=== PATIENT | female | born 1990 | race Caucasian/White ===

== ENCOUNTER 2016-06-27 12:25 | Emergency (ER) | payer MEDICAID ==
[2016-06-27 13:43] VITALS: BP 91/57
[2016-06-27 14:06] LABS: Basophils % (Auto) 0.2 % (0.0-1.8); Eosinophils % (Auto) 0.6 % (0.0-4.3); Hematocrit 37.6 % (30.3-42.9); Hemoglobin 12.5 gm/dl (10.1-14.3); Mean Corpuscular HGB Conc 33 % (30-34); Mean Corpuscular Hemoglobin 31 pg (28-32); Mean Corpuscular Volume 93 fl (79-97); Platelet Count 247 K/mm3 (140-440); Red Blood Count 4.06 M/mm3 (3.65-5.03); Red Cell Distribution Width 14.1 % (13.2-15.2); White Blood Count 14.7 K/mm3 (4.5-11.0)
[2016-06-27 14:36] LABS: Bilirubin,Urine NEG (Negative); Blood,Urine MOD (Negative); Ketones,Urine TR mg/dL (Negative); Leukocyte Esterase,Urine NEG (Negative); Mucus,Urine FEW /HPF; Nitrite,Urine NEG (Negative); Protein,Urine <15 mg/dL mg/dL (Negative); Urobilinogen,Urine < 2.0 mg/dL (<2.0)
--- NOTE | 2016-06-27 16:02 | Ultrasound Report ---
FINAL REPORT EXAM: US OB \T\gt; = 14 WEEKS FETUS HISTORY: ABD PAIN / / BLEEDING TECHNIQUE: Grayscale and color doppler ultrasound of the fetus was performed. PRIORS: Ob ultrasound 04/22/2016. FINDINGS: A single, live intrauterine fetus is present in transverse presentation with a heart rate of 156 beats per minute. The placenta is grade 0 and anterior in location. No definite evidence of placenta previa however the inferior aspect of the uterus was somewhat difficult to evaluate due to a contraction. The maternal cervix is closed measuring 4.0 centimeters in length. The amniotic fluid volume is subjectively normal. Biparietal diameter: 16 weeks and 6 days. Head circumference: 16 weeks and 4 days. Abdominal circumference: 16 weeks and 1 day. Femur length: 16 weeks and 3 days. Estimated gestational age based on ultrasound criteria is 16 weeks and 4 days with an YULY of 12/08/2016. EFW at the 16th percentile. Estimated weight is 153 grams. IMPRESSION: Live intrauterine fetus measuring at 16 weeks and 4 days gestational age with an YULY of 12/08/2016.
== END 2016-06-27 19:20 | disposition left against medical advice (07) ==
LOC: ED 12:25
DX: O26.892 Other specified pregnancy related conditions, second trimester (principal); R10.30 Lower abdominal pain, unspecified; F41.9 Anxiety disorder, unspecified; G89.29 Other chronic pain; Z87.891 Personal history of nicotine dependence; Z3A.16 16 weeks gestation of pregnancy; Z53.21 Procedure and treatment not carried out due to patient leaving prior to being seen by health care provider
CPT/HCPCS: 36415; 76805; 81001; 84702; 85025; 86850; 86900; 86901

== ENCOUNTER 2017-12-26 16:17 | Emergency (ER) | payer SELFPAY ==
--- NOTE | 2017-12-26 18:28 | Emergency Department Report ---
HPI - General Chief Complaint: Pain General Time Seen by Provider: 12/26/17 18:13 - HPI HPI: This is a 27-year-old female who presents to ED complaining of lower back pain 2 days. 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 Patient states she felt like she just a muscle because shortly after that her pain has gotten worse. Patient also states she also has a minor headache. She states that Her headache is due to the stress of work. She describes pain as throbbing and aching in nature. She denies any recent trauma or any other problems. She denies fever, chest pain, shortness of breath, dysuria, any other problem ED Past Medical Hx - Past Medical History Hx Psychiatric Treatment: Yes (ANXIETY) Hx Asthma: Yes Additional medical history: scoleosis; chronic back pain - Surgical History Additional Surgical History: Pregancy termination 06/2013 - Social History Smoking Status: Current Every Day Smoker Substance Use Type: None - Medications Home Medications: Home Medications Medication Instructions Recorded Confirmed Last Taken Type Vit No.130/Iron/Folic 1 each PO QDAY 06/27/16 06/27/16 06/26/16 09:00 History [ Tablet] Cyclobenzaprine [Flexeril 10 MG 10 mg PO QHS #20 tablet 12/26/17 Unknown Rx TAB] Ibuprofen [Motrin] 800 mg PO Q8HR #30 tablet 12/26/17 Unknown Rx ED Review of Systems ROS: Stated complaint: HEADACHE/BACK PAINS Other details as noted in HPI Constitutional: denies: chills, fever Eyes: denies: eye pain, eye discharge, vision change ENT: denies: ear pain, throat pain Respiratory: denies: cough, shortness of breath, wheezing Cardiovascular: denies: chest pain, palpitations Endocrine: no symptoms reported Gastrointestinal: denies: abdominal pain, nausea, diarrhea Musculoskeletal: back pain (low back), myalgia. denies: joint swelling, arthralgia Skin: denies: rash, lesions Neurological: headache (throbbing, mosque localized). denies: weakness, numbness, paresthesias, abnormal gait Physical Exam - Physical Exam Vital Signs: Vital Signs 12/26/17 16:35 Temperature 98.9 F Pulse Rate 83 Respiratory 20 Rate Blood Pressure 107/65 O2 Sat by Pulse 100 Oximetry Physical Exam: GENERAL: Alert and oriented x3, no apparent distress, Normal Gait, atraumatic. HEAD: Head is normocephalic and a-traumatic. NECK: Supple. Non edematous, No lymphadenopathy or thyromegaly. No C-spine tenderness, full range of motion LUNGS: Symetrical with respiration, No wheezing, no rales or crackles, CTAB. HEART: S1, S2 present, regular rate and rhythm without murmur, no rubs, no gallops. Non tender to palpation BACK: Full range of motion, no spinal tenderness, Tenderness to palpation of the trapezius muscles and latissimus dorsi muscles of the back EXTREMITIES/MUSCULOSKELETAL: No cyanosis, clubbing, rash, lesions or edema. Full ROM bilaterally. UE/LE Pulses 2+ bilaterally. LE and UE 5+ strength bilaterally, NEUROLOGIC: The patient is cooperative with no focal neurologic deficits. SKIN: Warm and dry, No lesions, No ulceration or induration present. ED Course Vital Signs 12/26/17 16:35 Temperature 98.9 F Pulse Rate 83 Respiratory 20 Rate Blood Pressure 107/65 O2 Sat by Pulse 100 Oximetry ED Medical Decision Making - Medical Decision Making 27-year-old female presents with low back muscle strength ED course: Patient received pain medication and ED and 10 mg of Flexeril Patient is in no acute or respiratory distress. Patient reports to feeling better. She states she will follow up with primary care physician. Discussed the patient and worsening symptoms or onset of symptoms to return to ED immediately. Critical care attestation.: If time is entered above; I have spent that time in minutes in the direct care of this critically ill patient, excluding procedure time. ED Disposition Clinical Impression: Strain of muscle, fascia and tendon of lower back, initial encounter, Muscle spasm Disposition: DC-01 TO HOME OR SELFCARE Is pt being admited?: No Does the pt Need Aspirin: No Condition: Stable Instructions: Muscle Strain (ED), Low Back Strain (ED), Trigger Point Pain (ED) Additional Instructions: Make sure to follow up with the primary care physician as discussed. Take all your medications as you've been prescribed. If you have any worsening symptoms or develop new symptoms please return to ED immediately. Prescriptions: Cyclobenzaprine [Flexeril 10 MG TAB] 10 mg PO QHS #20 tablet Ibuprofen [Motrin] 800 mg PO Q8HR #30 tablet Referrals: [facility] [Outside] - 3-5 Days [facility] [Outside] - 3-5 Days [facility] [Outside] - 3-5 Days Forms: Work/School Release Form(ED) Time of Disposition: 19:03
[2017-12-26] MEDS ORDERED: FLEXERIL PO ONE (18:31)
[2017-12-26] MEDS ORDERED: FIORICET PO ONE (18:31)
[2017-12-26 19:36] VITALS: BP 110/60
== END 2017-12-26 19:39 | disposition home or self-care (01) ==
LOC: ED 16:17
DX: S39.012A Strain of muscle, fascia and tendon of lower back, initial encounter (principal); R51 Headache; M62.838 Other muscle spasm; F41.9 Anxiety disorder, unspecified; J45.909 Unspecified asthma, uncomplicated; F17.200 Nicotine dependence, unspecified, uncomplicated; G89.29 Other chronic pain; X50.0XXA Overexertion from strenuous movement or load, initial encounter; Y93.89 Activity, other specified; Y92.89 Other specified places as the place of occurrence of the external cause; Y99.8 Other external cause status
CPT/HCPCS: 93005; 93010; 99282

== ENCOUNTER 2018-09-24 18:22 | Emergency (ER) | payer SELFPAY ==
[2018-09-24 19:33] LABS: Basophils # (Auto) 0.1 K/mm3 (0.0-0.1); Basophils % (Auto) 0.5 % (0.0-1.8); Eosinophils # (Auto) 0.3 K/mm3 (0.0-0.4); Eosinophils % (Auto) 2.9 % (0.0-4.3); Hematocrit 42.4 % (30.3-42.9); Hemoglobin 13.9 gm/dl (10.1-14.3); Lymphocytes % (Auto) 30.1 % (13.4-35.0); Mean Corpuscular HGB Conc 33 % (30-34); Mean Corpuscular Hemoglobin 30 pg (28-32); Mean Corpuscular Volume 91 fl (79-97); Monocytes # (Auto) 0.7 K/mm3 (0.0-0.8); Monocytes % (Auto) 7.4 % (0.0-7.3); Platelet Count 306 K/mm3 (140-440); Red Blood Count 4.68 M/mm3 (3.65-5.03); Red Cell Distribution Width 14.5 % (13.2-15.2)
[2018-09-24 19:46] LABS: BUN/Creatinine Ratio 12; Blood Urea Nitrogen 12 mg/dL (7-17); Calcium 9.3 mg/dL (8.4-10.2); Hemolysis Index 6; Lipase 13 units/L (13-60)
--- NOTE | 2018-09-24 19:56 | Emergency Department Report ---
ED Female HPI - General Chief complaint: Abdominal Pain Stated complaint: BACK PAIN Time Seen by Provider: 09/24/18 19:45 Source: patient Mode of arrival: Ambulatory Limitations: No Limitations - History of Present Illness Initial comments: Patient is a 28-year-old who presents to the emergency room with complaints of lower back pain that began a week ago. She has associated dysuria and urinary frequency. the patient states her sx feel like when she had a UTI. She does not report any fever, nausea, vomiting, diarrhea. states her LNMP August 04 denies being . She states she has irregular menstrual cycles. Denies any allergies to medications. - Related Data Home Medications Medication Instructions Recorded Confirmed Last Taken Vit No.130/Iron/Folic 1 each PO QDAY 06/27/16 06/27/16 06/26/16 09:00 [ Tablet] Previous Rx's Medication Instructions Recorded Last Taken Type Cyclobenzaprine [Flexeril 10 MG 10 mg PO QHS #20 tablet 12/26/17 Unknown Rx TAB] Ibuprofen [Motrin] 800 mg PO Q8HR #30 tablet 12/26/17 Unknown Rx Phenazopyridine [Pyridium] 200 mg PO BID PRN #14 tab 09/24/18 Unknown Rx cephALEXin [Keflex] 500 mg PO Q12HR 7 Days #14 cap 09/24/18 Unknown Rx Allergies Allergy/AdvReac Type Severity Reaction Status Date / Time No Known Allergies Allergy Verified 12/26/17 16:35 ED Review of Systems ROS: Stated complaint: BACK PAIN Other details as noted in HPI Comment: All other systems reviewed and negative ED Past Medical Hx - Past Medical History Previous Medical History?: Yes Hx Psychiatric Treatment: Yes (ANXIETY) Hx Asthma: Yes Additional medical history: scoleosis; chronic back pain - Surgical History Past Surgical History?: Yes Additional Surgical History: Pregancy termination 06/2013 - Social History Smoking Status: Current Every Day Smoker Substance Use Type: Alcohol - Medications Home Medications: Home Medications Medication Instructions Recorded Confirmed Last Taken Type Vit No.130/Iron/Folic 1 each PO QDAY 06/27/16 06/27/16 06/26/16 09:00 History [ Tablet] Cyclobenzaprine [Flexeril 10 MG 10 mg PO QHS #20 tablet 12/26/17 Unknown Rx TAB] Ibuprofen [Motrin] 800 mg PO Q8HR #30 tablet 12/26/17 Unknown Rx Phenazopyridine [Pyridium] 200 mg PO BID PRN #14 tab 09/24/18 Unknown Rx cephALEXin [Keflex] 500 mg PO Q12HR 7 Days #14 cap 09/24/18 Unknown Rx ED Physical Exam - General Limitations: No Limitations General appearance: alert, in no apparent distress - Head Head exam: Present: atraumatic, normocephalic - Eye Eye exam: Present: normal appearance - ENT ENT exam: Present: mucous membranes moist - Respiratory Respiratory exam: Present: normal lung sounds bilaterally. Absent: respiratory distress, wheezes, rhonchi, stridor, chest wall tenderness, accessory muscle use, decreased breath sounds, prolonged expiratory - Cardiovascular Cardiovascular Exam: Present: regular rate, normal rhythm, normal heart sounds. Absent: systolic murmur, diastolic murmur, rubs, gallop - GI/Abdominal GI/Abdominal exam: Present: soft, normal bowel sounds. Absent: distended, tenderness, guarding, rebound, rigid - Back Exam Back exam: Present: CVA tenderness (L) (mild TTP) - Neurological Exam Neurological exam: Present: alert, oriented X3 - Psychiatric Psychiatric exam: Present: normal affect, normal mood - Skin Skin exam: Present: warm, dry, intact ED Course Vital Signs 09/24/18 09/24/18 18:30 21:23 Temperature 98.7 F 98.3 F Pulse Rate 89 89 Respiratory 16 16 Rate Blood Pressure 98/61 Blood Pressure 101/63 [Left] O2 Sat by Pulse 99 100 Oximetry ED Medical Decision Making - Lab Data Result diagrams: 09/24/18 18:56 09/24/18 18:56 Lab Results 09/24/18 09/24/18 09/24/18 Range/Units 18:56 18:56 19:00 WBC 9.9 (4.5-11.0) K/mm3 RBC 4.68 (3.65-5.03) M/mm3 Hgb 13.9 (10.1-14.3) gm/dl Hct 42.4 (30.3-42.9) % MCV 91 (79-97) fl MCH 30 (28-32) pg MCHC 33 (30-34) % RDW 14.5 (13.2-15.2) % Plt Count 306 (140-440) K/mm3 Lymph % (Auto) 30.1 (13.4-35.0) % [place] % (Auto) 7.4 H (0.0-7.3) % Eos % (Auto) 2.9 (0.0-4.3) % Baso % (Auto) 0.5 (0.0-1.8) % Lymph # 3.0 (1.2-5.4) K/mm3 [place] # 0.7 (0.0-0.8) K/mm3 Eos # 0.3 (0.0-0.4) K/mm3 Baso # 0.1 (0.0-0.1) K/mm3 Seg Neutrophils % 59.1 (40.0-70.0) % Seg Neutrophils # 5.8 (1.8-7.7) K/mm3 Sodium 141 (137-145) mmol/L Potassium 4.2 (3.6-5.0) mmol/L Chloride 103.4 (98-107) mmol/L Carbon Dioxide 27 (22-30) mmol/L Anion Gap 15 mmol/L BUN 12 (7-17) mg/dL Creatinine 1.0 (0.7-1.2) mg/dL Estimated GFR > 60 ml/min BUN/Creatinine Ratio 12 % Glucose 111 H (65-100) mg/dL Calcium 9.3 (8.4-10.2) mg/dL Amylase 45 (27-131) units/L Lipase 13 (13-60) units/L Urine Color [place] (Yellow) Urine Turbidity Cloudy (Clear) Urine pH 7.0 (5.0-7.0) Ur Specific [place] 1.024 (1.003-1.030) Urine Protein 30 mg/dl (Negative) mg/dL Urine Glucose (UA) Neg (Negative) mg/dL Urine Ketones Tr (Negative) mg/dL Urine Blood Neg (Negative) Urine Nitrite Neg (Negative) Urine Bilirubin Neg (Negative) Urine Urobilinogen 2.0 (<2.0) mg/dL Ur Leukocyte Esterase Mod (Negative) Urine WBC (Auto) 84.0 H (0.0-6.0) /HPF Urine RBC (Auto) 4.0 (0.0-6.0) /HPF U Epithel Cells (Auto) 8.0 (0-13.0) /HPF Urine Bacteria (Auto) 1+ (Negative) /HPF Urine Mucus Few /HPF Urine HCG, Qual Negative (Negative) - Medical Decision Making Patient is a 28-year-old who presents to the emergency room with complaints of lower back pain that began a week ago. She has associated dysuria and urinary frequency. the patient states her sx feel like when she had a UTI. She does not report any fever, nausea, vomiting, diarrhea. states her LNMP August 04 denies being . She states she has irregular menstrual cycles. Denies any allergies to medications. VSS, pt is afebrile. labs WNL. UA shows evidence of UTI. no abd tenderness on exam. pt is tolerating PO intake. pt given prescription for keflex and pyridium. advised to please take medication as prescribed. drink plenty of water. Follow up with a primary care doctor in the next 2-3 days. Return to the emergency room for any new or worsening symptoms. Critical care attestation.: If time is entered above; I have spent that time in minutes in the direct care of this critically ill patient, excluding procedure time. ED Disposition Clinical Impression: Low back pain Qualifiers: Chronicity: acute Back pain laterality: bilateral Sciatica presence: without sciatica Qualified Code(s): M54.5 - Low back pain UTI (urinary tract infection) Qualifiers: Urinary tract infection type: acute cystitis Hematuria presence: without hematuria Qualified Code(s): N30.00 - Acute cystitis without hematuria Disposition: TO HOME OR SELFCARE Is pt being admited?: No Does the pt Need Aspirin: No Condition: Stable Instructions: Urinary Tract Infection in Women (ED) Additional Instructions: Please take medication as prescribed. drink plenty of water. Follow up with a primary care doctor in the next 2-3 days. Return to the emergency room for any new or worsening symptoms. Prescriptions: cephALEXin [Keflex] 500 mg PO Q12HR 7 Days #14 cap Phenazopyridine [Pyridium] 200 mg PO BID PRN #14 tab PRN Reason: pain Referrals: [facility] [Provider Group] - 2-3 Days [facility] [Outside] - 2-[address] [facility] [Outside] - 2-3 Days Time of Disposition: 20:44 Print Language: TURKISH
[2018-09-24 20:37] LABS: Bacteria,Urine 1+ /HPF (Negative); Bilirubin,Urine NEG (Negative); Blood,Urine NEG (Negative); Color,Urine Amber (Yellow); Mucus,Urine FEW /HPF
[2018-09-24 20:41] LABS: HCG Qualitative,Urine Negative (Negative)
[2018-09-24 21:24] VITALS: BP 101/63
== END 2018-09-24 21:20 | disposition home or self-care (01) ==
LOC: ED 18:22
DX: M54.5 Low back pain (principal); N39.0 Urinary tract infection, site not specified; F41.9 Anxiety disorder, unspecified; J45.909 Unspecified asthma, uncomplicated; M41.9 Scoliosis, unspecified; F17.200 Nicotine dependence, unspecified, uncomplicated; Z79.899 Other long term (current) drug therapy
CPT/HCPCS: 36415; 80048; 81001; 81025; 82150; 83690; 85025; 87086

== ENCOUNTER 2018-11-07 10:23 | Emergency (ER) | payer SELFPAY ==
[2018-11-07 10:29] VITALS: BP 111/52
[2018-11-07 11:04] LABS: Bacteria,Urine 1+ /HPF (Negative); Mucus,Urine FEW /HPF; RBC,Urine < 1.0 /HPF (0.0-6.0); WBC,Urine < 1.0 /HPF (0.0-6.0)
[2018-11-07 11:05] LABS: Basophils # (Auto) 0.1 K/mm3 (0.0-0.1); Basophils % (Auto) 0.6 % (0.0-1.8); Eosinophils # (Auto) 0.2 K/mm3 (0.0-0.4); Eosinophils % (Auto) 1.7 % (0.0-4.3); Hematocrit 45.1 % (30.3-42.9); Hemoglobin 15.1 gm/dl (10.1-14.3); Lymphocytes # (Auto) 2.6 K/mm3 (1.2-5.4); Lymphocytes % (Auto) 25.1 % (13.4-35.0); Mean Corpuscular HGB Conc 33 % (30-34); Mean Corpuscular Volume 90 fl (79-97); Monocytes # (Auto) 0.8 K/mm3 (0.0-0.8); Monocytes % (Auto) 7.5 % (0.0-7.3); Platelet Count 318 K/mm3 (140-440); Red Cell Distribution Width 16.9 % (13.2-15.2)
[2018-11-07 11:19] LABS: Bilirubin,Urine NEG (Negative); Blood,Urine NEG (Negative); Color,Urine Yellow (Yellow); Protein,Urine <15 mg/dL mg/dL (Negative); Urobilinogen,Urine < 2.0 mg/dL (<2.0)
[2018-11-07 11:21] LABS: Alanine Aminotransferase 11 units/L (7-56); Albumin 4.3 g/dL (3.9-5); BUN/Creatinine Ratio 12; Blood Urea Nitrogen 7 mg/dL (7-17); Calcium 9.6 mg/dL (8.4-10.2); Hemolysis Index 5
--- NOTE | 2018-11-07 12:50 | Emergency Department Report ---
ED Abdominal Pain HPI - General Chief Complaint: Pain General Stated Complaint: BODY PAIN Time Seen by Provider: 11/07/18 11:03 Source: patient Mode of arrival: Ambulatory Limitations: No Limitations - History of Present Illness Initial Comments: pt is a 28 yo female who presents to the ED with c/o right sided abd pain that began a couple of days ago. she also has lower back pain. she states she had N/V approximately two days ago in the morning but has not had it since. She denies any fever, diarrhea, urinary sx. she does not report any vaginal discharge or vaginal complaints. she states she took an at home test and it was positive two weeks ago. she has not seen an STUDIO TECHNICIAN VIDEO OPERATOR. PMHx asthma. she denies any allergies to meds. /P:4/A:1 - Related Data Home Medications Medication Instructions Recorded Confirmed Last Taken Vit No.130/Iron/Folic 1 each PO QDAY 06/27/16 06/27/16 06/26/16 09:00 [ Tablet] Previous Rx's Medication Instructions Recorded Last Taken Type Cyclobenzaprine [Flexeril 10 MG 10 mg PO QHS #20 tablet 12/26/17 Unknown Rx TAB] Ibuprofen [Motrin] 800 mg PO Q8HR #30 tablet 12/26/17 Unknown Rx Phenazopyridine [Pyridium] 200 mg PO BID PRN #14 tab 09/24/18 Unknown Rx cephALEXin [Keflex] 500 mg PO Q12HR 7 Days #14 cap 09/24/18 Unknown Rx Allergies Allergy/AdvReac Type Severity Reaction Status Date / Time No Known Allergies Allergy Verified 12/26/17 16:35 ED Review of Systems ROS: Stated complaint: BODY PAIN Other details as noted in HPI Comment: All other systems reviewed and negative ED Past Medical Hx - Past Medical History Hx Psychiatric Treatment: Yes (ANXIETY) Hx Asthma: Yes Additional medical history: scoleosis; chronic back pain - Surgical History Past Surgical History?: Yes Additional Surgical History: Pregancy termination 06/2013 - Social History Smoking Status: Current Every Day Smoker Substance Use Type: Alcohol, Marijuana - Medications Home Medications: Home Medications Medication Instructions Recorded Confirmed Last Taken Type Vit No.130/Iron/Folic 1 each PO QDAY 06/27/16 06/27/16 06/26/16 09:00 History [ Tablet] Cyclobenzaprine [Flexeril 10 MG 10 mg PO QHS #20 tablet 12/26/17 Unknown Rx TAB] Ibuprofen [Motrin] 800 mg PO Q8HR #30 tablet 12/26/17 Unknown Rx Phenazopyridine [Pyridium] 200 mg PO BID PRN #14 tab 09/24/18 Unknown Rx cephALEXin [Keflex] 500 mg PO Q12HR 7 Days #14 cap 09/24/18 Unknown Rx ED Physical Exam - General Limitations: No Limitations General appearance: alert, in no apparent distress - Head Head exam: Present: atraumatic, normocephalic - Eye Eye exam: Present: normal appearance - ENT ENT exam: Present: mucous membranes moist - Respiratory Respiratory exam: Present: normal lung sounds bilaterally. Absent: respiratory distress, wheezes, rales, rhonchi, stridor, chest wall tenderness, accessory muscle use, decreased breath sounds, prolonged expiratory - Cardiovascular Cardiovascular Exam: Present: regular rate, normal rhythm, normal heart sounds. Absent: systolic murmur, diastolic murmur, rubs, gallop - GI/Abdominal GI/Abdominal exam: Present: soft, normal bowel sounds. Absent: distended, tenderness, guarding, rebound, rigid - Back Exam Back exam: Absent: CVA tenderness (R), CVA tenderness (L) - Neurological Exam Neurological exam: Present: alert, oriented X3 - Psychiatric Psychiatric exam: Present: normal affect, normal mood - Skin Skin exam: Present: warm, dry, intact ED Course Vital Signs 11/07/18 10:27 Temperature 98.6 F Pulse Rate 74 Respiratory 16 Rate Blood Pressure 111/52 O2 Sat by Pulse 98 Oximetry ED Medical Decision Making - Lab Data Result diagrams: 11/07/18 10:44 11/07/18 10:44 Lab Results 11/07/18 11/07/18 11/07/18 Range/Units 10:42 10:44 10:44 WBC 10.4 (4.5-11.0) K/mm3 RBC 5.00 (3.65-5.03) M/mm3 Hgb 15.1 H (10.1-14.3) gm/dl Hct 45.1 H (30.3-42.9) % MCV 90 (79-97) fl MCH 30 (28-32) pg MCHC 33 (30-34) % RDW 16.9 H (13.2-15.2) % Plt Count 318 (140-440) K/mm3 Lymph % (Auto) 25.1 (13.4-35.0) % [place] % (Auto) 7.5 H (0.0-7.3) % Eos % (Auto) 1.7 (0.0-4.3) % Baso % (Auto) 0.6 (0.0-1.8) % Lymph # 2.6 (1.2-5.4) K/mm3 [place] # 0.8 (0.0-0.8) K/mm3 Eos # 0.2 (0.0-0.4) K/mm3 Baso # 0.1 (0.0-0.1) K/mm3 Seg Neutrophils % 65.1 (40.0-70.0) % Seg Neutrophils # 6.8 (1.8-7.7) K/mm3 Sodium 138 (137-145) mmol/L Potassium 4.1 (3.6-5.0) mmol/L Chloride 99.4 (98-107) mmol/L Carbon Dioxide 28 (22-30) mmol/L Anion Gap 15 mmol/L BUN 7 (7-17) mg/dL Creatinine 0.6 L (0.7-1.2) mg/dL Estimated GFR > 60 ml/min BUN/Creatinine Ratio 12 % Glucose 104 H (65-100) mg/dL Calcium 9.6 (8.4-10.2) mg/dL Total Bilirubin 0.40 (0.1-1.2) mg/dL AST 13 (5-40) units/L ALT 11 (7-56) units/L Alkaline Phosphatase 54 (35-129) units/L Total Protein 7.4 (6.3-8.2) g/dL Albumin 4.3 (3.9-5) g/dL Albumin/Globulin Ratio 1.4 % HCG, Qual (Negative) HCG, Quant (0-4) mIU/mL Urine Color Yellow (Yellow) Urine Turbidity Slightly-cloudy (Clear) Urine pH 7.0 (5.0-7.0) Ur Specific [place] 1.013 (1.003-1.030) Urine Protein <15 mg/dl (Negative) mg/dL Urine Glucose (UA) Neg (Negative) mg/dL Urine Ketones Neg (Negative) mg/dL Urine Blood Neg (Negative) Urine Nitrite Neg (Negative) Ur Reducing Substances Not Reportable Urine Bilirubin Neg (Negative) Urine Ictotest Not Reportable Urine Urobilinogen < 2.0 (<2.0) mg/dL Ur Leukocyte Esterase Neg (Negative) Urine WBC (Auto) < 1.0 (0.0-6.0) /HPF Urine RBC (Auto) < 1.0 (0.0-6.0) /HPF U Epithel Cells (Auto) 9.0 (0-13.0) /HPF Urine Bacteria (Auto) 1+ (Negative) /HPF Urine Mucus Few /HPF 11/07/18 11/07/18 Range/Units 10:44 12:13 WBC (4.5-11.0) K/mm3 RBC (3.65-5.03) M/mm3 Hgb (10.1-14.3) gm/dl Hct (30.3-42.9) % MCV (79-97) fl MCH (28-32) pg MCHC (30-34) % RDW (13.2-15.2) % Plt Count (140-440) K/mm3 Lymph % (Auto) (13.4-35.0) % [place] % (Auto) (0.0-7.3) % Eos % (Auto) (0.0-4.3) % Baso % (Auto) (0.0-1.8) % Lymph # (1.2-5.4) K/mm3 [place] # (0.0-0.8) K/mm3 Eos # (0.0-0.4) K/mm3 Baso # (0.0-0.1) K/mm3 Seg Neutrophils % (40.0-70.0) % Seg Neutrophils # (1.8-7.7) K/mm3 Sodium (137-145) mmol/L Potassium (3.6-5.0) mmol/L Chloride (98-107) mmol/L Carbon Dioxide (22-30) mmol/L Anion Gap mmol/L BUN (7-17) mg/dL Creatinine (0.7-1.2) mg/dL Estimated GFR ml/min BUN/Creatinine Ratio % Glucose (65-100) mg/dL Calcium (8.4-10.2) mg/dL Total Bilirubin (0.1-1.2) mg/dL AST (5-40) units/L ALT (7-56) units/L Alkaline Phosphatase (35-129) units/L Total Protein (6.3-8.2) g/dL Albumin (3.9-5) g/dL Albumin/Globulin Ratio % HCG, Qual Positive (Negative) HCG, Quant 86721 H (0-4) mIU/mL Urine Color (Yellow) Urine Turbidity (Clear) Urine pH (5.0-7.0) Ur Specific [place] (1.003-1.030) Urine Protein (Negative) mg/dL Urine Glucose (UA) (Negative) mg/dL Urine Ketones (Negative) mg/dL Urine Blood (Negative) Urine Nitrite (Negative) Ur Reducing Substances Urine Bilirubin (Negative) Urine Ictotest Urine Urobilinogen (<2.0) mg/dL Ur Leukocyte Esterase (Negative) Urine WBC (Auto) (0.0-6.0) /HPF Urine RBC (Auto) (0.0-6.0) /HPF U Epithel Cells (Auto) (0-13.0) /HPF Urine Bacteria (Auto) (Negative) /HPF Urine Mucus /HPF - Radiology Data Radiology results: report reviewed ULTRASOUND OBSTETRIC INDICATION: Abdominal and pelvic pain. Estimated clinically to 13 weeks, 4 days. TECHNIQUE: Transabdominal. COMPARISON: No relevant prior imaging study available. FINDINGS: GESTATIONAL SAC: Well-defined oval shape and intrauterine in location. YOLK SAC: No significant abnormality. EMBRYO/FETUS: No significant abnormality. - [place]-Rump Length = 0.4 cm = 6 weeks, 0 day(s). - Heart Rate = 118 beats per minute. ADNEXA: No significant abnormality. FREE FLUID: There is a very small amount of free fluid along the cul-de-sac. ADDITIONAL FINDINGS: None. IMPRESSION: 1. Single, living intrauterine with estimated sonographic age of 6 weeks, 0 day(s). 2. No acute abnormality of the pelvis. Signer Name: Grabiel Scott MD Signed: 11/07/2018 1:08 PM Workstation Name: [id number] Transcribed By: WADE Dictated By: Grabiel Scott MD Electronically Authenticated By: Grabiel Scott MD Signed Date/Time: 11/07/18 1308 - Medical Decision Making pt is a 28 yo female who presents to the ED with c/o right sided abd pain that began a couple of days ago. she also has lower back pain. she states she had N/V approximately two days ago in the morning but has not had it since. She denies any fever, diarrhea, urinary sx. she does not report any vaginal discharge or vaginal complaints. she states she took an at home test and it was positive two weeks ago. she has not seen an STUDIO TECHNICIAN VIDEO OPERATOR. PMHx asthma. she denies any allergies to meds. /P:4/A:1. vitals are normal. no abd tenderness on exam. [place] [address]. UA without evidence of UTI. OB US shows 1. Single, living intrauterine with estimated sonographic age of 6 weeks, 0 day(s). 2. No acute abnormality of the pelvis. advised pt to please drink plenty of water. begin taking a vitamin over the counter. follow up with an STUDIO TECHNICIAN VIDEO OPERATOR in the next 2-3 days to receive care. return to the emergency room for any new or worsening symptoms. - Differential Diagnosis IUP, ectopic , ovarian cyst, placenta previa, UTI Critical care attestation.: If time is entered above; I have spent that time in minutes in the direct care of this critically ill patient, excluding procedure time. ED Disposition Clinical Impression: Abdominal pain Qualifiers: Abdominal location: lower abdomen, unspecified Qualified Code(s): R10.30 - Lower abdominal pain, unspecified Lower back pain Qualifiers: Chronicity: acute Back pain laterality: bilateral Sciatica presence: without sciatica Qualified Code(s): M54.5 - Low back pain Qualifiers: Weeks of gestation: less than 8 weeks Qualified Code(s): Z3A.01 - Less than 8 weeks gestation of Disposition: DC-01 TO HOME OR SELFCARE Is pt being admited?: No Does the pt Need Aspirin: No Condition: Stable Instructions: (ED), Abdominal Pain in (ED) Additional Instructions: please drink plenty of water. begin taking a vitamin over the counter. follow up with an STUDIO TECHNICIAN VIDEO OPERATOR in the next 2-3 days to receive care. return to the emergency room for any new or worsening symptoms. Referrals: [facility] [Provider Group] - 2-3 Days [facility] [Provider Group] - 2-3 Days [facility] [Provider Group] - 2-3 Days [facility] [Provider Group] - 2-3 Days Forms: Work/School Release Form(ED) Time of Disposition: 13:38 Print Language: YI
--- NOTE | 2018-11-07 13:12 | Ultrasound Report ---
ULTRASOUND OBSTETRIC INDICATION: Abdominal and pelvic pain. Estimated clinically to 13 weeks, 4 days. TECHNIQUE: Transabdominal. COMPARISON: No relevant prior imaging study available. FINDINGS: GESTATIONAL SAC: Well-defined oval shape and intrauterine in location. YOLK SAC: No significant abnormality. EMBRYO/FETUS: No significant abnormality. - [place]-Rump Length = 0.4 cm = 6 weeks, 0 day(s). - Heart Rate = 118 beats per minute. ADNEXA: No significant abnormality. FREE FLUID: There is a very small amount of free fluid along the cul-de-sac. ADDITIONAL FINDINGS: None. IMPRESSION: 1. Single, living intrauterine with estimated sonographic age of 6 weeks, 0 day(s). 2. No acute abnormality of the pelvis. Signer Name: Grabiel Scott MD Signed: 11/07/2018 1:08 PM Workstation Name: [id number]
--- NOTE | 2018-11-07 13:12 | Ultrasound Report ---
ULTRASOUND OBSTETRIC INDICATION: Abdominal and pelvic pain. Estimated clinically to 13 weeks, 4 days. TECHNIQUE: Transabdominal. COMPARISON: No relevant prior imaging study available. FINDINGS: GESTATIONAL SAC: Well-defined oval shape and intrauterine in location. YOLK SAC: No significant abnormality. EMBRYO/FETUS: No significant abnormality. - [place]-Rump Length = 0.4 cm = 6 weeks, 0 day(s). - Heart Rate = 118 beats per minute. ADNEXA: No significant abnormality. FREE FLUID: There is a very small amount of free fluid along the cul-de-sac. ADDITIONAL FINDINGS: None. IMPRESSION: 1. Single, living intrauterine with estimated sonographic age of 6 weeks, 0 day(s). 2. No acute abnormality of the pelvis. Signer Name: Grabiel Scott MD Signed: 11/07/2018 1:08 PM Workstation Name: [id number]
== END 2018-11-07 13:47 | disposition home or self-care (01) ==
LOC: ED 10:23
DX: O26.891 Other specified pregnancy related conditions, first trimester (principal); R10.9 Unspecified abdominal pain; G89.29 Other chronic pain; M54.5 Low back pain; M41.9 Scoliosis, unspecified; O99.341 Other mental disorders complicating pregnancy, first trimester; F41.9 Anxiety disorder, unspecified; O99.511 Diseases of the respiratory system complicating pregnancy, first trimester; J45.909 Unspecified asthma, uncomplicated; O99.331 Smoking (tobacco) complicating pregnancy, first trimester; O99.311 Alcohol use complicating pregnancy, first trimester; O99.321 Drug use complicating pregnancy, first trimester; F12.10 Cannabis abuse, uncomplicated; Z79.899 Other long term (current) drug therapy; Z3A.01 Less than 8 weeks gestation of pregnancy
CPT/HCPCS: 36415; 76801; 76817; 80053; 81001; 84702; 84703; 85025

== ENCOUNTER 2019-02-12 13:06 | Outpatient (CLI) | payer MEDICAID ==
[2019-02-12 13:21] VITALS: BP 107/60
[2019-02-12] MEDS ORDERED: LACTATED RINGERS 1,000 ML IV ONE (13:27)
[2019-02-12] MEDS ORDERED: LACTATED RINGERS 1,000 ML IV SCH (14:00)
[2019-02-12 14:30] LABS: Albumin 3.4 g/dL (3.9-5); BUN/Creatinine Ratio 13; Blood Urea Nitrogen 4 mg/dL (7-17); Calcium 8.2 mg/dL (8.4-10.2); Hemolysis Index 120
[2019-02-12 14:32] LABS: Alanine Aminotransferase 12 units/L (7-56)
[2019-02-12] MEDS ORDERED: ONDANSETRON 4 MG/2 ML INJ ONE (14:32)
[2019-02-12 15:36] LABS: Hematocrit 34.6 % (30.3-42.9); Hemoglobin 11.8 gm/dl (10.1-14.3); Mean Corpuscular HGB Conc 34 % (30-34); Mean Corpuscular Volume 94 fl (79-97); Platelet Count 189 K/mm3 (140-440); Red Cell Distribution Width 13.7 % (13.2-15.2)
[2019-02-12 15:39] LABS: Bilirubin,Urine NEG (Negative); Blood,Urine NEG (Negative); Color,Urine Yellow (Yellow); Mucus,Urine FEW /HPF; Protein,Urine <15 mg/dL mg/dL (Negative); WBC,Urine < 1.0 /HPF (0.0-6.0)
== END 2019-02-12 16:50 | disposition home or self-care (01) ==
LOC: TRG 13:06
PROVIDERS: ATTEND Obstetrics & Gynecology
DX: O21.9 Vomiting of pregnancy, unspecified (principal); O47.02 False labor before 37 completed weeks of gestation, second trimester; O99.322 Drug use complicating pregnancy, second trimester; F12.90 Cannabis use, unspecified, uncomplicated; O99.332 Smoking (tobacco) complicating pregnancy, second trimester; F17.200 Nicotine dependence, unspecified, uncomplicated; Z3A.19 19 weeks gestation of pregnancy
CPT/HCPCS: 36415; 80053; 81001; 85027; 87400; 96360; 96374; J2405; J7120

== ENCOUNTER 2019-04-18 09:51 | Outpatient (CLI) | payer MEDICAID ==
[2019-04-18 10:11] VITALS: BP 114/65
[2019-04-18] MEDS ORDERED: LACTATED RINGERS 1,000 ML IV ONE (10:28)
== END 2019-04-18 11:10 | disposition home or self-care (01) ==
LOC: TRG 09:51
PROVIDERS: ATTEND Obstetrics & Gynecology
DX: O43.893 Other placental disorders, third trimester (principal); Z3A.29 29 weeks gestation of pregnancy

== ENCOUNTER 2019-06-04 02:30 | Inpatient (IN) | payer MEDICAID ==
[2019-06-04] MEDS ORDERED: LACTATED RINGERS 500 ML IV ONE (02:59)
[2019-06-04] MEDS ORDERED: AMPICILLIN/NS 2 GM/100 ML 2 GM/100 ML BAG IV ONE (04:06)
[2019-06-04] MEDS ORDERED: LACTATED RINGERS 1,000 ML IV ONE (04:12)
--- NOTE | 2019-06-04 04:19 | History and Physical Report ---
History of Present Illness Date of examination: 06/04/19 Date of admission: 06/04/2019 Chief complaint: Leaking of fluid and pink vaginal discharge after intercourse History of present illness: 28 year old presents to L&D with complaint of leaking of fluid from vagina and pink discharge after having intercourse around 1:45 AM this morning. Patient also states she is having contractions which began about an hour ago. Patient reports active movement. Patient denies falls or abdominal trauma. Patient states she receives regular care at [facility]. No records are available. Patient states she is unsure of her LMP. She states her EDC is 07/04/2019 which she states was based on an US done at 6 weeks gestation (US is being done upon admission for EGA as no records are available). Patient states she has had 4 full term SVDs in the past and one . She states the only complication she has had during this is the presence of a large preplacental hematoma which was seen on an US done at [place] on 04/17/2019. She states she was sent to [facility] due to this hematoma and just saw them this past week; she states she was told at [facility] that they did not see the hematoma on US. No labs are available since there are no records available. labs have been drawn upon admission. Past History Past Medical History: no pertinent history Past Surgical History: other (EAB) AUTO DRIVER History: denies: abnormal PAP smear, chlamydia, gonorrhea, hepatitis B, hepatitis C, herpes, HIV, syphilis, trichomonas Family/Genetic History: hypertension (patient's father with HTN) Social history: single, lives with family, smoking (smoked earlier in her pre gnancy; states she has quit), full code. denies: alcohol abuse, IV drug use - Obstetrical History Expected Date of Delivery: 07/04/19 Actual Gestation: 35 Week(s) 5 Day(s) : 6 Para: 4 Hx # Term Pregnancies: 4 Number of Pregnancies: 0 Spontaneous Abortions: 0 Induced : 1 Number of Living Children: 4 Medications and Allergies Allergies Allergy/AdvReac Type Severity Reaction Status Date / Time No Known Allergies Allergy Verified 12/26/17 16:35 Active Meds: Active Medications Betamethasone Acet/Betameth SodPhos (Celestone Soluspan) 12 mg IM Q24H YAMILE Stop: 06/05/19 05:01 Lactated Ringer's (Lactated Ringers) 1,000 mls @ 125 mls/hr IV DIRECT YAMILE Ampicillin Sodium (Ampicillin/Ns 2 Gm/100 Ml) 2 gm in 100 mls @ 100 mls/hr IV ONCE ONE; Protocol Stop: 06/04/19 05:05 Lactated Ringer's (Lactated Ringers) 1,000 mls @ 999 mls/hr IV BOLUS ONE Stop: 06/04/19 05:12 Multivitamins/Iron/Calcium ( Vitamin) 1 each PO QDAY [facility] Review of Systems All systems: negative (leaking of fluid and pink discharge after IC; uterine contractions) - Vital Signs Vital signs: Vital Signs Pulse Pulse Ox 69 97 06/04/19 02:38 06/04/19 02:38 Temp Pulse Resp BP Pulse Ox 97.8 F 85 18 114/61 98 06/04/19 02:39 06/04/19 03:18 06/04/19 02:39 06/04/19 02:39 06/04/19 03:18 - Physical Exam Abdomen: Positive: normal appearance, soft. Negative: distention, tenderness, guarding, rigidity Genitourinary (Female): Positive: normal external genitalia, normal perenium. Negative: perineal/vulvar lesions (no lesions seen on careful exam with bright light upon admission) Vagina: Positive: other (SSE performed; pink fluid noted; + nitrazine, + fern test) Uterus: Positive: enlarged (S>D) Anus/Rectum: Positive: normal perianal skin Extremities: Positive: normal. Negative: tenderness, edema - Obstetrical FHR: category 1 Uterine Contraction Monitor Mode: External Cervical Dilatation: 2 Cervical Effacement Percentage: 50 station: -4 Uterine Contraction Pattern: Irregular Uterine Contraction Intensity: Mild Results Result Diagrams: 06/04/19 04:05 All other labs normal. Assessment and Plan A: at 35 weeks, 5 days gestation. Spontaneous rupture of membranes. Contractions, possible early labor. No records available. GBS unknown. Reported history of preplacental hematoma. P: Admit. Obtain records. Draw labs and UDS. US ordered for EGA/EDC, location and integrity of placenta, presentation, ARABELLA. GBS prophylaxis. Continuous EFM. Celestone IM. IV hydration. Consulted with Dr. Yin re: this patient, history, complaints, SROM, and interventions taken.
[2019-06-04] MEDS ORDERED: TERBUTALINE 1 MG/1 ML INJ SUB-Q PRN (04:32)
[2019-06-04] MEDS: BETAMET ACET/BETAMET NA PH 6 MG/ML INJ 5 ML MDV IM SCH (04:43)
[2019-06-04 04:52] LABS: Hematocrit 33.2 % (30.3-42.9); Hemoglobin 11.2 gm/dl (10.1-14.3); Mean Corpuscular HGB Conc 34 % (30-34); Mean Corpuscular Volume 92 fl (79-97); Platelet Count 213 K/mm3 (140-440); Red Blood Count 3.62 M/mm3 (3.65-5.03); Red Cell Distribution Width 13.2 % (13.2-15.2)
[2019-06-04] MEDS ORDERED: LACTATED RINGERS 1,000 ML IV SCH (05:00)
[2019-06-04 05:03] LABS: Bilirubin,Urine NEG (Negative); Blood,Urine MOD (Negative); Color,Urine Straw (Yellow); Protein,Urine <15 mg/dL mg/dL (Negative); Urobilinogen,Urine < 2.0 mg/dL (<2.0)
[2019-06-04 05:20] LABS: Hepatitis C Virus Antibody Non-Reactive (NonReactive)
[2019-06-04 05:21] LABS: Amphetamine Screen,Urine PRESUMPTIVE NEGATIVE; Benzodiazepines Screen,Urine PRESUMPTIVE NEGATIVE; Methadone Screen,Urine PRESUMPTIVE NEGATIVE; Opiate Screen,Urine PRESUMPTIVE NEGATIVE
[2019-06-04 05:31] LABS: Cannabinoid Screen,Urine PRESUMPTIVE POSITIVE; Cocaine Screen,Urine PRESUMPTIVE POSITIVE
--- NOTE | 2019-06-04 05:48 | Ultrasound Report ---
US OB FOLLOW UP INDICATION / CLINICAL INFORMATION: EGA, presentation, location of placenta, placental. COMPARISON: 11/07/18. FINDINGS: There is a single intrauterine with an estimated gestational age of 34 weeks 4 days EDC of 07/12/19. Clinical dates are 35 weeks 5 days. The heart rate is 137 bpm. presentation is cephalic. Amniotic fluid volume is normal with an ARABELLA of 20.5 cm. The placenta is located anteriorly, is grade 3 and is free of the os. There is no evidence of abruption. The estimated weight is 2577 +/- 381 g. Signer Name: Sam Hodges MD Signed: 06/04/2019 5:44 AM Workstation Name: [id number]
[2019-06-04 06:10] LABS: Total Cells Counted 100
[2019-06-04 06:11] LABS: Anisocytosis 1+; Basophils % (Manual) 0 % (0.0-1.8); Eosinophils % (Manual) 0 % (0.0-4.3)
[2019-06-04 06:12] LABS: Large Platelets 1+; Platelet Estimate Consistent w Auto
[2019-06-04] MEDS: AMPICILLIN/NS 1 GM/50 ML 1 GM/50 ML BAG IV SCH ×4 (08:49→22:11)
[2019-06-04] MEDS: PRENATAL VIT27-FE FUMARATE-FOLIC ACID VIT TAB PO SCH ×2 (08:51→11:06)
[2019-06-04] MEDS ORDERED: ACETAMINOPHEN 325 MG TAB ONE (08:57)
[2019-06-04] MEDS ORDERED: ACETAMINOPHEN 500 MG TAB PO PRN (08:58)
[2019-06-04] MEDS ORDERED: ACETAMINOPHEN 325 MG TAB PO PRN (09:19)
--- NOTE | 2019-06-04 09:35 | Progress Note ---
Assessment and Plan - Patient Problems (1) 35 weeks gestation of Current Visit: Yes Status: Acute (2) premature rupture of membranes in third trimester Current Visit: Yes Status: Acute Plan to address problem: Continue current management Continue ampicillin per protocol Start labor augmentation with Oxytocin after second dose of Celestone Request records from [facility] Anticipate vaginal delivery (3) Positive urine drug screen Current Visit: Yes Status: Acute Plan to address problem: Discussed plan of care with patient Case management consult ordered Subjective - Subjective Date of service: 06/04/19 Principal diagnosis: IUP @ 35w5d, PPROM, +cocaine/marijuana Interval history: see DRIVE MAN-H&P Patient reports: loss of fluid, vaginal bleeding (bloody show), movement normal, contractions Objective - Vital Signs Vital Signs: Vital Signs - 12hr 06/04/19 06/04/19 06/04/19 02:38 02:39 02:43 Temperature 97.8 F Pulse Rate 69 88 83 Respiratory 18 Rate Blood Pressure 114/61 Blood Pressure 114/61 [Left] Blood Pressure [Right] O2 Sat by Pulse 97 97 98 Oximetry 06/04/19 06/04/19 06/04/19 02:48 02:53 02:58 Temperature Pulse Rate 85 81 89 Respiratory Rate Blood Pressure Blood Pressure [Left] Blood Pressure [Right] O2 Sat by Pulse 97 96 97 Oximetry 06/04/19 06/04/19 06/04/19 03:03 03:08 03:13 Temperature Pulse Rate 84 84 87 Respiratory Rate Blood Pressure Blood Pressure [Left] Blood Pressure [Right] O2 Sat by Pulse 98 98 98 Oximetry 06/04/19 06/04/19 06/04/19 03:18 04:30 07:10 Temperature 98.1 F Pulse Rate 85 80 Respiratory Rate Blood Pressure 100/51 Blood Pressure [Left] Blood Pressure [Right] O2 Sat by Pulse 98 96 Oximetry 06/04/19 06/04/19 06/04/19 07:13 07:15 07:20 Temperature 98.2 F Pulse Rate 80 80 83 Respiratory 18 Rate Blood Pressure Blood Pressure [Left] Blood Pressure 100/51 [Right] O2 Sat by Pulse 99 99 99 Oximetry 06/04/19 06/04/19 07:25 08:57 Temperature Pulse Rate 76 Respiratory 18 Rate Blood Pressure Blood Pressure [Left] Blood Pressure [Right] O2 Sat by Pulse 98 Oximetry - Exam Narrative Exam: GC/CT culture collected Vulva: both: normal FHR: auscultation normal, category 1 FHR comments: baseline 120, moderate variability, 15x15 accels, no decels Uterine Contraction Monitor Mode: External Uterine Contraction Frequency (min): 3-6 Uterine Contraction Pattern: Regular Extremities: normal - Labs Labs: Abnormal Labs 06/04/19 04:05 WBC 12.7 H RBC 3.62 L Seg Neuts % (Manual) 73.0 H Seg Neutrophils # Man 9.3 H Laboratory Results - last 24 hr 06/04/19 06/04/19 06/04/19 04:05 04:05 04:05 WBC 12.7 H RBC 3.62 L Hgb 11.2 Hct 33.2 MCV 92 MCH 31 MCHC 34 RDW 13.2 Plt Count 213 Add Manual Diff Complete Total Counted 100 Seg Neuts % (Manual) 73.0 H Band Neutrophils % 0 Lymphocytes % (Manual) 23.0 Reactive Lymphs % (Man) 0 Monocytes % (Manual) 3.0 Eosinophils % (Manual) 0 Basophils % (Manual) 0 Metamyelocytes % 1.0 Myelocytes % 0 Promyelocytes % 0 Blast Cells % 0 Nucleated RBC % Not Reportable Seg Neutrophils # Man 9.3 H Band Neutrophils # 0.0 Lymphocytes # (Manual) 2.9 Abs React Lymphs (Man) 0.0 Monocytes # (Manual) 0.4 Eosinophils # (Manual) 0.0 Basophils # (Manual) 0.0 Metamyelocytes # 0.1 Myelocytes # 0.0 Promyelocytes # 0.0 Blast Cells # 0.0 WBC Morphology Not Reportable Hypersegmented Neuts Not Reportable Hyposegmented Neuts Not Reportable Hypogranular Neuts Not Reportable Smudge Cells Not Reportable Toxic Granulation Not Reportable Toxic Vacuolation Not Reportable Dohle Bodies Not Reportable Pelger-Huet Anomaly Not Reportable Paddy Rods Not Reportable Platelet Estimate Consistent w auto Clumped Platelets Not Reportable Plt Clumps, EDTA Not Reportable Large Platelets 1+ Giant Platelets Not Reportable Platelet Satelliting Not Reportable Plt Morphology Comment Not Reportable RBC Morphology Not Reportable Dimorphic RBCs Not Reportable Polychromasia Not Reportable Hypochromasia Not Reportable Poikilocytosis Not Reportable Anisocytosis 1+ Microcytosis Not Reportable Macrocytosis Not Reportable Spherocytes Not Reportable Pappenheimer Bodies Not Reportable Sickle Cells Not Reportable Target Cells Not Reportable Tear Drop Cells Not Reportable Ovalocytes Not Reportable Helmet Cells Not Reportable [place] Bodies Not Reportable [place] Rings Not Reportable [place] Cells Not Reportable Bite Cells Not Reportable Crenated Cell Not Reportable Elliptocytes Not Reportable Acanthocytes (Spur) Not Reportable Rouleaux Not Reportable Hemoglobin C Crystals Not Reportable Schistocytes Not Reportable Malaria parasites Not Reportable Usman Bodies Not Reportable Hem Pathologist Commnt No Hemoglobin A1c Urine Color Straw Urine Turbidity Clear Urine pH [address] 1.005 Urine Protein <15 mg/dl Urine Glucose (UA) Neg Urine Ketones Neg Urine Blood Mod Urine Nitrite Neg Urine Bilirubin Neg Urine Urobilinogen < 2.0 Ur Leukocyte Esterase Neg Urine WBC (Auto) 2.0 Urine RBC (Auto) 7.0 U Epithel Cells (Auto) 1.0 Urine Opiates Screen Presumptive negative Urine Methadone Screen Presumptive negative Ur Barbiturates Screen Presumptive negative Ur Phencyclidine Scrn Presumptive negative Ur Amphetamines Screen Presumptive negative U Benzodiazepines Scrn Presumptive negative Urine Cocaine Screen Presumptive positive U Marijuana (THC) Screen Presumptive positive Drugs of Abuse Note Disclamer Syphilis IgG Antibody Hep Bs Antigen Hepatitis C Antibody HIV 1&2 Antibody Rapid HIV P24 Antigen Rubella IgG Antibody Blood Type Antibody Screen 06/04/19 06/04/19 06/04/19 04:05 04:05 04:05 WBC RBC Hgb Hct MCV MCH MCHC RDW Plt Count Add Manual Diff Total Counted Seg Neuts % (Manual) Band Neutrophils % Lymphocytes % (Manual) Reactive Lymphs % (Man) Monocytes % (Manual) Eosinophils % (Manual) Basophils % (Manual) Metamyelocytes % Myelocytes % Promyelocytes % Blast Cells % Nucleated RBC % Seg Neutrophils # Man Band Neutrophils # Lymphocytes # (Manual) Abs React Lymphs (Man) Monocytes # (Manual) Eosinophils # (Manual) Basophils # (Manual) Metamyelocytes # Myelocytes # Promyelocytes # Blast Cells # WBC Morphology Hypersegmented Neuts Hyposegmented Neuts Hypogranular Neuts Smudge Cells Toxic Granulation Toxic Vacuolation Dohle Bodies Pelger-Huet Anomaly Paddy Rods Platelet Estimate Clumped Platelets Plt Clumps, EDTA Large Platelets Giant Platelets Platelet Satelliting Plt Morphology Comment RBC Morphology Dimorphic RBCs Polychromasia Hypochromasia Poikilocytosis Anisocytosis Microcytosis Macrocytosis Spherocytes Pappenheimer Bodies Sickle Cells Target Cells Tear Drop Cells Ovalocytes Helmet Cells Herbert[place] Bodies [place] Rings [place] Cells Bite Cells Crenated Cell Elliptocytes Acanthocytes (Spur) Rouleaux Hemoglobin C Crystals Schistocytes Malaria parasites Usman Bodies Hem Pathologist Commnt Hemoglobin A1c 5.2 Urine Color Urine Turbidity Urine pH Ur Specific Lane Urine Protein Urine Glucose (UA) Urine Ketones Urine Blood Urine Nitrite Urine Bilirubin Urine Urobilinogen Ur Leukocyte Esterase Urine WBC (Auto) Urine RBC (Auto) U Epithel Cells (Auto) Urine Opiates Screen Urine Methadone Screen Ur Barbiturates Screen Ur Phencyclidine Scrn Ur Amphetamines Screen U Benzodiazepines Scrn Urine Cocaine Screen U Marijuana (THC) Screen Drugs of Abuse Note Syphilis IgG Antibody Non-reactive Hep Bs Antigen Hepatitis C Antibody Non-reactive HIV 1&2 Antibody Rapid HIV P24 Antigen Rubella IgG Antibody Immune Blood Type O POSITIVE Antibody Screen Negative 06/04/19 06/04/19 04:05 04:05 WBC RBC Hgb Hct MCV MCH MCHC RDW Plt Count Add Manual Diff Total Counted Seg Neuts % (Manual) Band Neutrophils % Lymphocytes % (Manual) Reactive Lymphs % (Man) Monocytes % (Manual) Eosinophils % (Manual) Basophils % (Manual) Metamyelocytes % Myelocytes % Promyelocytes % Blast Cells % Nucleated RBC % Seg Neutrophils # Man Band Neutrophils # Lymphocytes # (Manual) Abs React Lymphs (Man) Monocytes # (Manual) Eosinophils # (Manual) Basophils # (Manual) Metamyelocytes # Myelocytes # Promyelocytes # Blast Cells # WBC Morphology Hypersegmented Neuts Hyposegmented Neuts Hypogranular Neuts Smudge Cells Toxic Granulation Toxic Vacuolation Dohle Bodies Pelger-Huet Anomaly Paddy Rods Platelet Estimate Clumped Platelets Plt Clumps, EDTA Large Platelets Giant Platelets Platelet Satelliting Plt Morphology Comment RBC Morphology Dimorphic RBCs Polychromasia Hypochromasia Poikilocytosis Anisocytosis Microcytosis Macrocytosis Spherocytes Pappenheimer Bodies Sickle Cells Target Cells Tear Drop Cells Ovalocytes Helmet Cells [place] Bodies [place] Rings [place] Cells Bite Cells Crenated Cell Elliptocytes Acanthocytes (Spur) Rouleaux Hemoglobin C Crystals Schistocytes Malaria parasites Usman Bodies Hem Pathologist Commnt Hemoglobin A1c Urine Color Urine Turbidity Urine pH Ur Specific Lane Urine Protein Urine Glucose (UA) Urine Ketones Urine Blood Urine Nitrite Urine Bilirubin Urine Urobilinogen Ur Leukocyte Esterase Urine WBC (Auto) Urine RBC (Auto) U Epithel Cells (Auto) Urine Opiates Screen Urine Methadone Screen Ur Barbiturates Screen Ur Phencyclidine Scrn Ur Amphetamines Screen U Benzodiazepines Scrn Urine Cocaine Screen U Marijuana (THC) Screen Drugs of Abuse Note Syphilis IgG Antibody Hep Bs Antigen Non-reactive Hepatitis C Antibody HIV 1&2 Antibody Rapid Non react HIV P24 Antigen Non react Rubella IgG Antibody Blood Type Antibody Screen
[2019-06-04] MEDS ORDERED: ONDANSETRON 4 MG/2 ML INJ ONE (09:41)
[2019-06-04] MEDS: ONDANSETRON 4 MG/2 ML INJ IV PRN ×2 (09:43→18:17)
[2019-06-04] MEDS ORDERED: AMPICILLIN/NS 2 GM/100 ML 2 GM/100 ML BAG IV SCH (10:00)
[2019-06-04] MEDS ORDERED: DOCUSATE SODIUM 100 MG CAP PO ONE (16:28)
[2019-06-04] MEDS: fentaNYL 100 MCG/2 ML INJ IV PRN (23:15)
[2019-06-05] MEDS: AMPICILLIN/NS 1 GM/50 ML 1 GM/50 ML BAG IV SCH ×4 (02:13→13:01)
[2019-06-05] MEDS: BETAMET ACET/BETAMET NA PH 6 MG/ML INJ 5 ML MDV IM SCH (04:43)
[2019-06-05] MEDS ORDERED: OXYTOCIN DRIP 30 UNITS/500 ML BAG IV SCH (06:00)
[2019-06-05] MEDS: PRENATAL VIT27-FE FUMARATE-FOLIC ACID VIT TAB PO SCH (10:00)
[2019-06-05] MEDS: fentaNYL 100 MCG/2 ML INJ IV PRN ×2 (10:07→13:01)
--- NOTE | 2019-06-05 10:23 | Progress Note ---
Assessment and Plan - Patient Problems (1) premature rupture of membranes in third trimester Current Visit: Yes Status: Acute Plan to address problem: Continue routine labor orders Continue Pitocin titration as tolerated Pain meds as ordered Anticipate (2) GBS screening not performed Current Visit: Yes Status: Acute Plan to address problem: Continue GBS prophylaxis per protocol (3) Positive urine drug screen Current Visit: Yes Status: Acute Plan to address problem: Case management PP Subjective - Subjective Date of service: 06/05/19 Principal diagnosis: IUP @ 35w6d, PPROM, +cocaine/marijuana Interval history: See admission H & P; OB progress notes Patient reports: new complaints (requesting pain meds), loss of fluid, movement normal, contractions (becoming more painful) Objective - Vital Signs Vital Signs: Vital Signs - 12hr 06/04/19 06/04/19 06/04/19 22:21 22:26 22:31 Temperature Pulse Rate 78 83 83 Respiratory Rate Blood Pressure O2 Sat by Pulse 97 96 97 Oximetry 06/04/19 06/04/19 06/04/19 22:36 22:38 22:41 Temperature Pulse Rate 76 81 76 Respiratory Rate Blood Pressure O2 Sat by Pulse 95 94 95 Oximetry 06/04/19 06/04/19 06/04/19 22:56 22:59 23:01 Temperature 98.4 F Pulse Rate 82 80 Respiratory Rate Blood Pressure O2 Sat by Pulse 98 96 Oximetry 06/04/19 06/04/19 06/04/19 23:06 23:11 23:15 Temperature Pulse Rate 85 83 Respiratory 18 Rate Blood Pressure O2 Sat by Pulse 98 97 Oximetry 06/04/19 06/04/19 06/04/19 23:16 23:18 23:21 Temperature Pulse Rate 83 93 H 97 H Respiratory Rate Blood Pressure O2 Sat by Pulse 96 94 94 Oximetry 06/04/19 06/04/19 06/04/19 23:26 23:28 23:31 Temperature Pulse Rate 91 H 96 H 91 H Respiratory Rate Blood Pressure O2 Sat by Pulse 95 94 96 Oximetry 06/04/19 06/04/19 06/04/19 23:36 23:41 23:46 Temperature Pulse Rate 85 86 89 Respiratory Rate Blood Pressure O2 Sat by Pulse 95 95 95 Oximetry 06/04/19 06/04/19 06/04/19 23:49 23:51 23:54 Temperature Pulse Rate 90 86 87 Respiratory Rate Blood Pressure O2 Sat by Pulse 94 95 94 Oximetry 06/04/19 06/05/19 06/05/19 23:56 00:00 00:01 Temperature Pulse Rate 86 90 92 H Respiratory Rate Blood Pressure O2 Sat by Pulse 94 94 94 Oximetry 06/05/19 06/05/19 06/05/19 00:06 00:09 00:11 Temperature Pulse Rate 92 H 93 H 93 H Respiratory Rate Blood Pressure O2 Sat by Pulse 94 94 94 Oximetry 06/05/19 06/05/19 06/05/19 02:11 04:47 05:54 Temperature 98.3 F 99.4 F Pulse Rate 93 H Respiratory Rate Blood Pressure 95/50 O2 Sat by Pulse Oximetry 06/05/19 06/05/19 06/05/19 05:55 06:00 06:05 Temperature Pulse Rate 94 H 91 H 95 H Respiratory Rate Blood Pressure O2 Sat by Pulse 97 97 95 Oximetry 06/05/19 06/05/19 06/05/19 06:06 06:10 06:12 Temperature Pulse Rate 91 H 89 88 Respiratory Rate Blood Pressure 97/55 O2 Sat by Pulse 94 96 Oximetry 06/05/19 06/05/19 06/05/19 06:15 06:20 06:25 Temperature Pulse Rate 95 H 92 H 98 H Respiratory Rate Blood Pressure O2 Sat by Pulse 95 96 98 Oximetry 06/05/19 06/05/19 06/05/19 06:30 06:35 06:40 Temperature Pulse Rate 93 H 94 H 90 Respiratory Rate Blood Pressure O2 Sat by Pulse 96 96 96 Oximetry 06/05/19 06/05/19 06/05/19 06:45 06:50 06:54 Temperature Pulse Rate 95 H 95 H 90 Respiratory Rate Blood Pressure O2 Sat by Pulse 96 96 94 Oximetry 06/05/19 06/05/19 06/05/19 06:55 06:59 07:00 Temperature Pulse Rate 94 H 92 H 92 H Respiratory Rate Blood Pressure O2 Sat by Pulse 96 94 98 Oximetry 06/05/19 06/05/19 06/05/19 07:05 07:07 07:10 Temperature Pulse Rate 90 92 H 91 H Respiratory Rate Blood Pressure O2 Sat by Pulse 95 94 96 Oximetry 06/05/19 06/05/19 06/05/19 07:11 07:15 07:20 Temperature Pulse Rate 93 H 96 H 90 Respiratory Rate Blood Pressure 110/78 O2 Sat by Pulse 96 97 Oximetry 06/05/19 06/05/19 06/05/19 07:26 07:31 07:35 Temperature Pulse Rate 95 H 95 H 91 H Respiratory Rate Blood Pressure O2 Sat by Pulse 77 L 96 94 Oximetry 06/05/19 06/05/19 06/05/19 07:36 07:40 07:41 Temperature Pulse Rate 100 H 97 H 87 Respiratory Rate Blood Pressure O2 Sat by Pulse 95 94 95 Oximetry 06/05/19 06/05/19 06/05/19 07:46 07:51 07:53 Temperature Pulse Rate 85 92 H 90 Respiratory Rate Blood Pressure O2 Sat by Pulse 96 94 94 Oximetry 06/05/19 06/05/19 06/05/19 07:56 08:00 08:01 Temperature Pulse Rate 97 H 97 H 88 Respiratory Rate Blood Pressure O2 Sat by Pulse 95 94 95 Oximetry 06/05/19 06/05/19 06/05/19 08:06 08:11 08:44 Temperature Pulse Rate 97 H 94 H 83 Respiratory Rate Blood Pressure 102/64 O2 Sat by Pulse 96 96 96 Oximetry 06/05/19 06/05/19 06/05/19 08:49 08:54 08:59 Temperature Pulse Rate 90 88 83 Respiratory Rate Blood Pressure O2 Sat by Pulse 95 97 96 Oximetry 06/05/19 06/05/19 06/05/19 09:04 09:09 09:14 Temperature Pulse Rate 83 89 90 Respiratory Rate Blood Pressure O2 Sat by Pulse 97 96 94 Oximetry 06/05/19 06/05/19 06/05/19 09:15 09:19 09:24 Temperature Pulse Rate 87 83 85 Respiratory Rate Blood Pressure 103/59 O2 Sat by Pulse 99 98 Oximetry 06/05/19 06/05/19 06/05/19 09:26 09:29 09:34 Temperature Pulse Rate 82 90 89 Respiratory Rate Blood Pressure O2 Sat by Pulse 92 96 96 Oximetry 06/05/19 06/05/19 06/05/19 09:37 09:39 09:52 Temperature Pulse Rate 86 85 80 Respiratory Rate Blood Pressure O2 Sat by Pulse 94 97 99 Oximetry 06/05/19 06/05/19 06/05/19 09:57 10:02 10:07 Temperature Pulse Rate 99 H 92 H 85 Respiratory Rate Blood Pressure 93/51 O2 Sat by Pulse 96 96 95 Oximetry 06/05/19 06/05/19 06/05/19 10:11 10:12 10:16 Temperature Pulse Rate 84 88 85 Respiratory Rate Blood Pressure 100/53 O2 Sat by Pulse 94 95 Oximetry 06/05/19 06/05/19 10:17 10:18 Temperature Pulse Rate 90 82 Respiratory Rate Blood Pressure O2 Sat by Pulse 95 94 Oximetry - Exam Breasts: deferred Cardiovascular: Regular rate Lungs: Normal air movement FHR: category 1 Uterine Contraction Monitor Mode: External Cervical Dilatation: 2 (per RN) Cervical Effacement Percentage: 60 station: -3 Uterine Contraction Pattern: Irregular Uterine Tone Measurement Phase: Resting Uterine Contraction Intensity: Mild - Labs Labs: Abnormal Labs 06/04/19 04:05 WBC 12.7 H RBC 3.62 L Seg Neuts % (Manual) 73.0 H Seg Neutrophils # Man 9.3 H
[2019-06-05] MEDS ORDERED: OXYTOCIN 20 UNIT/1000ML DRIP 20,000 MILLIUNITS/1,000 ML BAG IV ONE (12:54)
[2019-06-05] MEDS ORDERED: BICITRA ORAL LIQD 30ML PO ONE (13:45)
[2019-06-05] MEDS ORDERED: FAMOTIDINE 20 MG/2 ML INJ IV ONE ×2 (13:45→13:49)
[2019-06-05] MEDS ORDERED: METOCLOPRAMIDE 10 MG/2 ML INJ IV ONE (13:45)
[2019-06-05] MEDS ORDERED: BICITRA ORAL LIQD 30ML ONE (13:48)
[2019-06-05] MEDS ORDERED: METOCLOPRAMIDE 10 MG/2 ML INJ ONE (13:49)
--- NOTE | 2019-06-05 13:56 | Progress Note ---
Assessment and Plan - Patient Problems (1) premature rupture of membranes in third trimester Current Visit: Yes Status: Acute (2) GBS screening not performed Current Visit: Yes Status: Acute (3) Positive urine drug screen Current Visit: Yes Status: Acute (4) Vaginal bleeding in Current Visit: Yes Status: Acute Plan to address problem: Call placed to Dr. Angel to come to bedside for evaluation Dr. Angel discussed R/B/A of C/S with pt, consent obtained for C/S Subjective - Subjective Date of service: 06/05/19 Principal diagnosis: IUP @ 35w6d, PPROM, +cocaine/marijuana Interval history: See admission H & P; OB progress notes Patient reports: new complaints (Reports increased abdominal pain), loss of fluid, vaginal bleeding (approx 200mls of bright red blood noted on pad under pt), movement normal, contractions (becoming more painful) Objective - Vital Signs Vital Signs: Vital Signs - 12hr 06/05/19 06/05/19 06/05/19 02:11 04:47 05:54 Temperature 98.3 F 99.4 F Pulse Rate 93 H Respiratory Rate Blood Pressure 95/50 O2 Sat by Pulse Oximetry 06/05/19 06/05/19 06/05/19 05:55 06:00 06:05 Temperature Pulse Rate 94 H 91 H 95 H Respiratory Rate Blood Pressure O2 Sat by Pulse 97 97 95 Oximetry 06/05/19 06/05/19 06/05/19 06:06 06:10 06:12 Temperature Pulse Rate 91 H 89 88 Respiratory Rate Blood Pressure 97/55 O2 Sat by Pulse 94 96 Oximetry 06/05/19 06/05/19 06/05/19 06:15 06:20 06:25 Temperature Pulse Rate 95 H 92 H 98 H Respiratory Rate Blood Pressure O2 Sat by Pulse 95 96 98 Oximetry 06/05/19 06/05/19 06/05/19 06:30 06:35 06:40 Temperature Pulse Rate 93 H 94 H 90 Respiratory Rate Blood Pressure O2 Sat by Pulse 96 96 96 Oximetry 06/05/19 06/05/19 06/05/19 06:45 06:50 06:54 Temperature Pulse Rate 95 H 95 H 90 Respiratory Rate Blood Pressure O2 Sat by Pulse 96 96 94 Oximetry 06/05/19 06/05/19 06/05/19 06:55 06:59 07:00 Temperature Pulse Rate 94 H 92 H 92 H Respiratory Rate Blood Pressure O2 Sat by Pulse 96 94 98 Oximetry 06/05/19 06/05/19 06/05/19 07:05 07:07 07:10 Temperature Pulse Rate 90 92 H 91 H Respiratory Rate Blood Pressure O2 Sat by Pulse 95 94 96 Oximetry 06/05/19 06/05/19 06/05/19 07:11 07:15 07:20 Temperature Pulse Rate 93 H 96 H 90 Respiratory Rate Blood Pressure 110/78 O2 Sat by Pulse 96 97 Oximetry 06/05/19 06/05/19 06/05/19 07:26 07:31 07:35 Temperature Pulse Rate 95 H 95 H 91 H Respiratory Rate Blood Pressure O2 Sat by Pulse 77 L 96 94 Oximetry 06/05/19 06/05/19 06/05/19 07:36 07:40 07:41 Temperature Pulse Rate 100 H 97 H 87 Respiratory Rate Blood Pressure O2 Sat by Pulse 95 94 95 Oximetry 06/05/19 06/05/19 06/05/19 07:46 07:51 07:53 Temperature Pulse Rate 85 92 H 90 Respiratory Rate Blood Pressure O2 Sat by Pulse 96 94 94 Oximetry 06/05/19 06/05/19 06/05/19 07:56 08:00 08:01 Temperature Pulse Rate 97 H 97 H 88 Respiratory Rate Blood Pressure O2 Sat by Pulse 95 94 95 Oximetry 06/05/19 06/05/19 06/05/19 08:06 08:11 08:44 Temperature Pulse Rate 97 H 94 H 83 Respiratory Rate Blood Pressure 102/64 O2 Sat by Pulse 96 96 96 Oximetry 06/05/19 06/05/19 06/05/19 08:49 08:54 08:59 Temperature Pulse Rate 90 88 83 Respiratory Rate Blood Pressure O2 Sat by Pulse 95 97 96 Oximetry 06/05/19 06/05/19 06/05/19 09:04 09:09 09:14 Temperature Pulse Rate 83 89 90 Respiratory Rate Blood Pressure O2 Sat by Pulse 97 96 94 Oximetry 06/05/19 06/05/19 06/05/19 09:15 09:19 09:24 Temperature Pulse Rate 87 83 85 Respiratory Rate Blood Pressure 103/59 O2 Sat by Pulse 99 98 Oximetry 06/05/19 06/05/19 06/05/19 09:26 09:29 09:34 Temperature Pulse Rate 82 90 89 Respiratory Rate Blood Pressure O2 Sat by Pulse 92 96 96 Oximetry 06/05/19 06/05/19 06/05/19 09:37 09:39 09:52 Temperature Pulse Rate 86 85 80 Respiratory Rate Blood Pressure O2 Sat by Pulse 94 97 99 Oximetry 06/05/19 06/05/19 06/05/19 09:57 10:02 10:07 Temperature Pulse Rate 99 H 92 H 85 Respiratory Rate Blood Pressure 93/51 O2 Sat by Pulse 96 96 95 Oximetry 06/05/19 06/05/19 06/05/19 10:11 10:12 10:16 Temperature Pulse Rate 84 88 85 Respiratory Rate Blood Pressure 100/53 O2 Sat by Pulse 94 95 Oximetry 06/05/19 06/05/19 06/05/19 10:17 10:18 10:22 Temperature Pulse Rate 90 82 84 Respiratory Rate Blood Pressure O2 Sat by Pulse 95 94 94 Oximetry 06/05/19 06/05/19 06/05/19 10:24 10:27 10:30 Temperature Pulse Rate 80 78 80 Respiratory Rate Blood Pressure O2 Sat by Pulse 94 95 94 Oximetry 06/05/19 06/05/19 06/05/19 10:32 10:36 10:37 Temperature Pulse Rate 82 83 81 Respiratory Rate Blood Pressure O2 Sat by Pulse 95 94 95 Oximetry 06/05/19 06/05/19 06/05/19 10:42 10:45 10:47 Temperature Pulse Rate 87 75 84 Respiratory Rate Blood Pressure 106/59 O2 Sat by Pulse 94 94 Oximetry 06/05/19 06/05/19 06/05/19 10:52 10:57 11:03 Temperature Pulse Rate 87 83 81 Respiratory Rate Blood Pressure O2 Sat by Pulse 96 95 96 Oximetry 06/05/19 06/05/19 06/05/19 11:08 11:11 11:13 Temperature 99.1 F Pulse Rate 80 74 Respiratory 16 Rate Blood Pressure O2 Sat by Pulse 96 96 96 Oximetry 06/05/19 06/05/19 06/05/19 11:15 11:18 11:23 Temperature Pulse Rate 84 81 93 H Respiratory Rate Blood Pressure 100/55 O2 Sat by Pulse 96 98 Oximetry 06/05/19 06/05/19 06/05/19 11:28 11:32 11:33 Temperature Pulse Rate 83 88 81 Respiratory Rate Blood Pressure O2 Sat by Pulse 97 94 95 Oximetry 06/05/19 06/05/19 06/05/19 11:35 11:40 11:45 Temperature Pulse Rate 82 97 H 75 Respiratory Rate Blood Pressure O2 Sat by Pulse 94 91 98 Oximetry 06/05/19 06/05/19 06/05/19 11:50 11:55 13:19 Temperature Pulse Rate 85 87 80 Respiratory Rate Blood Pressure 101/53 O2 Sat by Pulse 97 96 Oximetry 06/05/19 06/05/19 13:20 13:25 Temperature Pulse Rate 75 76 Respiratory Rate Blood Pressure O2 Sat by Pulse 94 93 Oximetry - Exam Breasts: deferred Cardiovascular: Regular rate Lungs: Normal air movement Abdomen: Present: soft (to palpation, no guarding noted), other (gravid). Absent: distention, tenderness, guarding FHR: category 1 Uterine Contraction Monitor Mode: External Cervical Dilatation: 2 (Large blood clots palpated in vaginal gavin) Cervical Effacement Percentage: 60 station: -2 Uterine Contraction Frequency (min): 2-4 Uterine Contraction Pattern: Regular Uterine Tone Measurement Phase: Resting Uterine Contraction Intensity: Mild Extremities: normal - Labs Labs: Abnormal Labs 06/04/19 04:05 WBC 12.7 H RBC 3.62 L Seg Neuts % (Manual) 73.0 H Seg Neutrophils # Man 9.3 H
[2019-06-05] MEDS ORDERED: LACTATED RINGERS 1,000 ML IV SCH ×2 (14:00→23:45)
[2019-06-05] MEDS ORDERED: OXYTOCIN 20 UNIT/1000ML DRIP 20 UNITS/1,000 ML BAG IV SCH ×2 (14:00→16:00)
[2019-06-05] MEDS ORDERED: ceFAZolin/Water 2 GM/20 ML 2 GM/20 ML SYRINGE IV NR (14:00)
[2019-06-05] MEDS ORDERED: ONDANSETRON 4 MG/2 ML INJ ONE (14:52)
[2019-06-05] MEDS ORDERED: OXYTOCIN 10 UNIT/1 ML INJ ONE (14:52)
[2019-06-05] MEDS ORDERED: KETOROLAC 30 MG/1 ML INJ ONE (14:52)
[2019-06-05] MEDS ORDERED: DEXMEDETOMIDINE 200 MCG/2 ML VIAL IV ONE (14:52)
[2019-06-05] MEDS ORDERED: diphenhydrAMINE 50 MG/ML VIAL ONE (14:52)
[2019-06-05] MEDS ORDERED: HYDROmorphone 1 MG/1 ML INJ ONE (15:13)
--- NOTE | 2019-06-05 15:44 | Event Note ---
Date: 06/05/19 I saw patient shortly after sales record clerk reported active profuse vaginal bleeding. Patient had been told, according to her, that MFM was following a 13cm retroplacental clot earlier. Diagnosis was a placental abruption. The need for delivery and risks were fully discussed.
--- NOTE | 2019-06-05 15:50 | Operative Report ---
Operative Report Operative Report: Date of surgery: June 05, 2019 Preoperative diagnoses: PPROM, placental abruption at 35 weeks and 6 days. V oluntary request for sterilization Postoperative diagnoses: The same. Operation: Lower segment transverse delivery and bilateral salpingectomies Surgeon:Elsa Angel MD Retail Store Associate: Deyvi Sharma CRNA Anesthesia: Spinal block Estimated blood loss: 800 mL Complications: None Findings: There was a live baby boy weighing 2923 g, Apgars 9 and 9 in longitudinal lie, cephalic presentation. The trunk of delivery colored blood clots was noted on the leading edge of the placenta. Both ovaries and fallopian tubes as well as the uterus were all grossly and palpably normal. Loops of bow els and the greater omentum palpable through the Pfannenstiel incision were grossly normal. Procedure in detail: The patient was taken to the operating room and given a spinal block. Patient was placed in the straight supine position and a Frias catheter was inserted. The patient was prepped in the abdomen. The drapes were placed. A timeout was done. With the go ahead from the cylinder inspector, a Pfannenstiel incision was made. This incision was carried across the subcutaneous layer to the fascia which was also divided transversely. The recti abdominis muscle flaps were stripped from the f ascia using a combination of blunt and sharp dissections. The muscles were in the midline to gain access to the anterior parietal peritoneum which was divided after excluding any underlying viscera. The access to the peritoneal cavity was then widened by manual stretching. The bladder blade was applied. The utero vesicle peritoneal flap was divided transversely allowing the bladder to be displaced caudally. The uterine incision was placed in the lower segment transversely. The uterine incision was carried to the decidual layer. The uterine incision was extended on both sides using the bandage scissors. The amniotic sac was ruptured with clear fluid. The head was lifted out of the false maternal pelvis and delivered through the incision using fundal pressure. The airways were bulb suctioned beginning with the mouth. Continuing fundal pressure combined with traction on the mandibular processes of the jaw delivered the rest of the baby. The umbilical cord was double clamped and divided. The baby was carefully transferred to the pediatric team. The placenta was manually removed from the uterine cavity. The uterine cavity was explored and was empty of any placental remnants. The uterine incision was repaired in 2 layers with #1 Vicryl. The surgical line on the uterus was hemostatic. Each fallopian tube was excised from the fimbrial end to the attachment at the uterine cornua by isolating pedicles of the mesosalpinx and tying these off with #1 Vicryl. Hemostasis along the lines of excision of the fallopian tubes were excellent. Blood and clots were cleared from the peritoneal cavity. The anterior parietal peritoneum was repaired with #1 Vicryl. The fascia was repaired with #1 Vicryl. The subcutaneous layer was made hemostatic using the Bovie before the skin was closed subcuticularly with 4-0 Vicryl. There were no complications. The estimated blood loss was 800 mL. All sponges and instrument counts were correct. Patient was safely transferred to the recovery room.
[2019-06-05] MEDS ORDERED: ACETAMINOPHEN 325 MG TAB PO PRN (15:51)
[2019-06-05] MEDS ORDERED: NALOXONE 0.4 MG/1 ML INJ IV PRN (15:51)
[2019-06-05] MEDS ORDERED: ONDANSETRON 4 MG/2 ML INJ IV PRN (15:51)
[2019-06-05] MEDS ORDERED: MORPHINE 4 MG/1 ML INJ IV PRN (15:51)
[2019-06-05] MEDS ORDERED: WITCH HAZEL/ GLYCERIN PAD TP PRN (15:51)
[2019-06-05] MEDS ORDERED: LANOLIN/ZINC/DIMETHICONE (LANSINOH) 7 GM TP PRN (15:51)
--- NOTE | 2019-06-05 16:14 | Anesthesia Consultation ---
Anesthesia Consult and Med Hx Date of service: 06/05/19 - Airway Anesthetic Teeth Evaluation: Good ROM Head & Neck: Adequate Mental/Hyoid Distance: Adequate Mallampati Class: Class II Intubation Access Assessment: Good - Pulmonary Exam CTA: Yes - Cardiac Exam Cardiac Exam: RRR - Pre-Operative Health Status ASA Pre-Surgery Classification: ASA2, Emergency Proposed Anesthetic Plan: Epidural - Pulmonary Hx Asthma: Yes - Cardiovascular System Hx Hypertension: No - Central Nervous System Hx Seizures: No Hx Psychiatric Problems: No - Endocrine Hx Renal Disease: No Hx Hypothyroidism: No Hx Hyperthyroidism: No - Hematic Hx Anemia: No Hx Sickle Cell Disease: No - Other Systems Hx Alcohol Use: No
--- NOTE | 2019-06-05 16:15 | Anesthesia Day of Surgery ---
Anesthesia Day of Surgery - Day of Surgery Patient Examined: Yes Patient H&P Reviewed: Yes Patient is NPO: Yes
[2019-06-05] MEDS ORDERED: HYDROmorphone 1 MG/1 ML INJ IV PRN (16:17)
[2019-06-05] MEDS ORDERED: PROMETHAZINE 25 MG RECT SUPP PR PRN (16:17)
[2019-06-05] MEDS ORDERED: PROMETHAZINE 25 MG TAB PO PRN (16:17)
--- NOTE | 2019-06-05 16:17 | Progress Note ---
Spinal Anesthesia Block - Spinal Anesthesia Block Start Time: 14:12 Stop Time: 14:20 Performed by:: LUBA HERNANDEZ Procedure: Spinal anesthesia block is being performed for primary for placental abruption. H&P, labs have been reviewed. Patient's questions and concerns have been answered. Informed consent has been performed. Timeout has was performed. Patient in sitting position on side of bed. Sterile prep and drape was performed. 3 mL 1% lidocaine skin wheal at L 3-L 4. Needle introducer advanced. 25-gauge spinal needle advanced, clear CSF negative blood. Spinal dose was given. All needles removed. Patient tolerated procedure well.
--- NOTE | 2019-06-05 16:17 | Post Anesthesia Evaluation ---
- Post Anesthesia Evaluation Patient Participated: Yes Airway Patent: Yes Stable Respiratory Function: Yes Nausea/Vomiting: No Temp > 96.8F: Yes Pain Manageable: Yes Adequeate Hydration: Yes Anesthesia Complications: No Block Receding Appropriately: Yes Patient on Ventilator: No
[2019-06-05 22:00] LABS: Basophils % (Auto) 0.1 % (0.0-1.8); Hematocrit 25.3 % (30.3-42.9); Hemoglobin 8.4 gm/dl (10.1-14.3); Lymphocytes % (Auto) 10.5 % (13.4-35.0); Mean Corpuscular HGB Conc 33 % (30-34); Mean Corpuscular Volume 92 fl (79-97); Monocytes # (Auto) 1.9 K/mm3 (0.0-0.8); Monocytes % (Auto) 9.8 % (0.0-7.3); Platelet Count 195 K/mm3 (140-440); Red Blood Count 2.74 M/mm3 (3.65-5.03)
[2019-06-05] MEDS: ceFAZolin/NS 1 GM/50 ML 1 GM/50 ML BAG IV SCH (22:17)
[2019-06-06] MEDS: HYDROcodone/ACETAMINOPHEN 5-325 MG TAB PO PRN ×4 (01:18→23:40)
[2019-06-06] MEDS: ceFAZolin/NS 1 GM/50 ML 1 GM/50 ML BAG IV SCH (06:01)
[2019-06-06] MEDS: IBUPROFEN 800 MG TAB PO PRN ×3 (06:01→21:26)
[2019-06-06 06:15] LABS: Hematocrit 26.2 % (30.3-42.9); Hemoglobin 8.8 gm/dl (10.1-14.3)
[2019-06-06] MEDS: PRENATAL VIT27-FE FUMARATE-FOLIC ACID VIT TAB PO SCH (09:47)
[2019-06-06] MEDS ORDERED: FERROUS SULFATE 325 MG TAB PO SCH (10:00)
--- NOTE | 2019-06-06 11:24 | Progress Note ---
Assessment and Plan A: POD #1 Asymptomatic Anemia P: Follow Routine PostOp Orders Ferrous Sulfate 325mg PO TID Infed 100mg IM x 1 dose Subjective - Subjective Date of service: 06/06/19 Principal diagnosis: IUP @ 35w6d, PPROM, +cocaine/marijuana Patient reports: appetite normal, voiding normally, pain well controlled, flatus, ambulating normally [place]: doing well, bottle feeding Objective - Vital Signs Latest vital signs: Vital Signs Temp Pulse Resp BP BP Pulse Ox 06/06/19 09:00 98.0 F 76 18 101/67 99 06/05/19 23:41 98.8 F 87 19 115/58 96 06/05/19 21:03 99.0 F 86 17 108/48 96 06/05/19 17:20 97.5 F L 74 18 104/46 99 06/05/19 16:45 95 H 16 81/58 99 06/05/19 16:35 98 H 18 104/44 99 06/05/19 16:20 97 H 18 92/45 06/05/19 16:10 100 H 16 96/38 98 06/05/19 16:05 96 H 20 96/44 06/05/19 15:59 81 19 81/30 06/05/19 15:50 100 H 18 82/38 99 06/05/19 15:45 98.4 F 92 H 17 120/97 06/05/19 13:25 76 93 06/05/19 13:20 75 94 06/05/19 13:19 80 101/53 06/05/19 11:55 87 96 06/05/19 11:50 85 97 06/05/19 11:45 75 98 06/05/19 11:40 97 H 91 06/05/19 11:35 82 94 06/05/19 11:33 81 95 06/05/19 11:32 88 94 06/05/19 11:28 83 97 06/05/19 11:23 93 H 98 Intake and Output 06/05/19 06/06/19 06/06/19 22:59 06:59 14:59 Intake Total 1370 300 Output Total 199 468 1535 Balance 620 -300 -1000 Intake: IV 1050 ANCEF/NS 1 GM/50 ML 1 gm 50 In 50 ml @ 100 mls/hr IV Q8H [facility] Rx#:[id number] Oral 320 Intake, Free Water 300 Output: Urine 574 067 7121 Indwelling Catheter 600 Uretheral (Frias) 50 Void 200 1000 Other: Total, Intake Amount 320 Total, Output Amount 200 600 500 # Voids Void 1 - Exam Breasts: Present: normal Cardiovascular: Present: Regular rate Lungs: Present: Clear to auscultation, Normal air movement Abdomen: Present: normal appearance, soft, normal bowel sounds Uterus: Present: normal, firm, fundal height below umbilicus Extremities: Present: normal Incision: Present: dry, dressed - Labs Labs: Abnormal lab results 06/05/19 06/06/19 Range/Units 21:41 04:43 WBC 18.9 H (4.5-11.0) K/mm3 RBC 2.74 L (3.65-5.03) M/mm3 Hgb 8.4 L 8.8 L (10.1-14.3) gm/dl Hct 25.3 L D 26.2 L (30.3-42.9) % RDW 13.0 L (13.2-15.2) % Lymph % (Auto) 10.5 L (13.4-35.0) % Lewis % (Auto) 9.8 H (0.0-7.3) % Lewis # 1.9 H (0.0-0.8) K/mm3 Seg Neutrophils % 79.6 H (40.0-70.0) % Seg Neutrophils # 15.1 H (1.8-7.7) K/mm3
[2019-06-06] MEDS ORDERED: IRON DEXTRAN COMPLEX 100 MG/2 ML INJ IM ONE (11:30)
[2019-06-06] MEDS: FERROUS SULFATE 325 MG TAB PO SCH ×2 (14:29→21:26)
[2019-06-07] MEDS: IBUPROFEN 800 MG TAB PO PRN ×3 (03:24→22:47)
[2019-06-07] MEDS: FERROUS SULFATE 325 MG TAB PO SCH ×3 (09:42→20:47)
[2019-06-07] MEDS: PRENATAL VIT27-FE FUMARATE-FOLIC ACID VIT TAB PO SCH (09:43)
--- NOTE | 2019-06-07 10:09 | Progress Note ---
Assessment and Plan - Patient Problems (1) S/P primary low transverse Current Visit: Yes Status: Acute Plan to address problem: POD 2 - stable Continue routine postop orders Ambulation encouraged, as tolerated Abdominal binder ordered Discharge to home 06/08/19 Follow-up at [facility] as needed or in 1-2 weeks for incision check. (2) S/P tubal ligation Current Visit: Yes Status: Acute (3) Single live Current Visit: Yes Status: Acute (4) Anemia due to blood loss, acute Current Visit: Yes Status: Acute Plan to address problem: Asymptomatic s/p Infed 100mg IM x1 Continue iron therapy (5) Positive urine drug screen Current Visit: Yes Status: Acute Plan to address problem: s/p Case management consult (see Automatic Trimming Sewer Note) Subjective - Subjective Date of service: 06/07/19 Principal diagnosis: POD #2; s/p Primary LTCS and BTL, +cocaine/marijuana Interval history: see MANAGER OUTREACH-H&P, OB Progress Notes, Event Note, Operative Report and PP/SHOE DRESSER Progress Note Patient reports: appetite normal, voiding normally, pain well controlled, flatus, ambulating normally, no dizzy ambulation : doing well Objective - Vital Signs Latest vital signs: Vital Signs Temp Pulse Resp BP Pulse Ox 06/07/19 00:00 98.6 F 74 16 112/72 06/06/19 12:27 98.4 F 83 18 104/66 98 Intake and Output 06/06/19 06/07/19 06/07/19 23:59 07:59 15:59 Intake Total 860 200 Output Total 800 Balance 60 200 Intake: Oral 560 200 Intake, Free Water 300 Output: Urine 800 Void 800 Other: Total, Intake Amount 120 200 Total, Output Amount 300 # Voids Void 1 1 - Exam Cardiovascular: Present: Regular rate Lungs: Present: Clear to auscultation Abdomen: Present: normal appearance, soft Vulva: both: normal Uterus: Present: normal, firm, fundal height below umbilicus Extremities: Present: normal Incision: Present: normal, dry, intact, other (steri strips in place) Comments: scant lochia
--- NOTE | 2019-06-07 10:15 | Discharge Summary ---
Providers - Providers Date of Admission: 06/04/19 04:36 Date of discharge: 06/08/19 Attending physician: SANIA LARIOS MD Case Management Primary care physician: SANIA LARIOS MD Hospitalization Reason for admission: IUP - , labor (PPROM) Delivery: Procedure: bilateral tubal ligation, primary low transverse Episiotomy: none Laceration: none Incision: normal, dry, intact, other (steri strips in place) Other procedures: none complications: none Discharge diagnosis: delivery baby: male Hospital course: Uncomplicated Condition at discharge: Stable Disposition: DC- TO HOME OR SELFCARE - Discharge Diagnoses (1) S/P primary low transverse Status: Acute (2) S/P tubal ligation Status: Acute (3) Single live Status: Acute (4) Anemia due to blood loss, acute Status: Acute Comment: Asymptomatic Continue taking iron pills Eat iron-rich foods (5) Positive urine drug screen Status: Acute Comment: +cocaine and marijuana s/p Case Management Consult Plan - Discharge Medications Prescriptions: Docusate Sodium [Colace CAP] 100 mg PO BID #30 capsule Ferrous Sulfate [Feosol 325 MG tab] 325 mg PO TID #90 tablet Ibuprofen [Motrin 800 MG tab] 800 mg PO Q6H PRN #30 tablet PRN Reason: Pain, Mild (1-3) HYDROcodone/APAP 5-325 [[place] 5/325] 1 - 2 each PO Q4HR PRN #30 tablet PRN Reason: Pain - Provider Discharge Summary Activity: routine, no sex for 6 weeks, no heavy lifting 4 weeks, no strenuous exercise Diet: routine Instructions: routine Additional instructions: [] Smoking cessation referral if applicable(refer to patient education folder for contact #) [] Refer to [facility] Booklet Call your doctor immediately for: * Fever > 100.5 * Heavy vaginal bleeding ( >1 pad per hour) * Severe persistent headache * Shortness of breath * Reddened, hot, painful area to leg or breast * Drainage or odor from incision. * Keep incision clean and dry at all times and follow doctor's instructions regarding bathing/showering - Follow up plan Follow up: SANIA LARIOS MD [Primary Care Provider] - 7 Days (Follow-up at [facility] as needed or in 1-2 weeks for incision check)
[2019-06-07] MEDS: HYDROcodone/ACETAMINOPHEN 5-325 MG TAB PO PRN (15:25)
[2019-06-07] MEDS: DOCUSATE SODIUM 100 MG CAP PO SCH (22:46)
[2019-06-08 08:21] VITALS: BP 116/78
[2019-06-08] MEDS: DOCUSATE SODIUM 100 MG CAP PO SCH (09:07)
[2019-06-08] MEDS: FERROUS SULFATE 325 MG TAB PO SCH (09:07)
[2019-06-08] MEDS: PRENATAL VIT27-FE FUMARATE-FOLIC ACID VIT TAB PO SCH (09:07)
[2019-06-08] MEDS: HYDROcodone/ACETAMINOPHEN 5-325 MG TAB PO PRN (12:01)
== END 2019-06-08 15:21 | disposition home or self-care (01) | DRG 765 ==
LOC: TRG 02:30 → LD 04:36 → OB 06-05 17:31
PROVIDERS: ADMIT Obstetrics & Gynecology; ATTEND Obstetrics & Gynecology
PROC: 10D00Z1 Extraction of Products of Conception, Low, Open Approach (ICD-10-PCS; principal; 2019-06-05)
PROC: 0UB70ZZ Excision of Bilateral Fallopian Tubes, Open Approach (ICD-10-PCS; 2019-06-05)
PROC: 3E0R3BZ Introduction of Anesthetic Agent into Spinal Canal, Percutaneous Approach (ICD-10-PCS; 2019-06-05)
PROC: 00HU33Z Insertion of Infusion Device into Spinal Canal, Percutaneous Approach (ICD-10-PCS; 2019-06-05)
DX: O60.14X0 Preterm labor third trimester with preterm delivery third trimester, not applicable or unspecified (principal); O45.93 Premature separation of placenta, unspecified, third trimester; D62 Acute posthemorrhagic anemia; O42.013 Preterm premature rupture of membranes, onset of labor within 24 hours of rupture, third trimester; R82.79 Other abnormal findings on microbiological examination of urine; Z3A.35 35 weeks gestation of pregnancy; Z37.0 Single live birth; Z87.891 Personal history of nicotine dependence; Z82.49 Family history of ischemic heart disease and other diseases of the circulatory system; O99.02 Anemia complicating childbirth; Z30.2 Encounter for sterilization
CPT/HCPCS: 36415; 76816; 80307; 81001; 83036; 85007; 85014; 85018; 85025; 86592; 86706; 86762; 86803; 86850; 86900; 86901; 87086; 87591; 87806; 88302; 88307; G0378; J0290; J0690; J0702; J1170; J1200; J1750; J1885; J2270; J2405; J2590; J2765; J3010; J3490; J7120

== ENCOUNTER 2020-10-19 10:13 | Emergency (ER) | payer MEDICAID ==
[2020-10-19 16:33] VITALS: BP 110/60
== END 2020-10-19 16:49 | disposition home or self-care (01) ==
LOC: ED 10:13
DX: N12 Tubulo-interstitial nephritis, not specified as acute or chronic (principal); E87.6 Hypokalemia; E83.42 Hypomagnesemia; E27.9 Disorder of adrenal gland, unspecified; F41.8 Other specified anxiety disorders; J45.909 Unspecified asthma, uncomplicated; M54.9 Dorsalgia, unspecified; Z87.891 Personal history of nicotine dependence
CPT/HCPCS: 36415; 71045; 74177; 80053; 81001; 81025; 82140; 83690; 83735; 85007; 85025; 87086; 96365; 96375; 99284; J0696; J1885; J7030; Q9967

== ENCOUNTER 2021-06-18 06:17 | Emergency (ER) | payer SELFPAY ==
[2021-06-18] MEDS ORDERED: KETOROLAC 30 MG/1 ML INJ IM ONE (09:20)
--- NOTE | 2021-06-18 09:24 | Emergency Department Report ---
ED ENT HPI - General Chief complaint: Pain General Stated complaint: EAR/THROAT/MOUTH/BACK PAIN Time Seen by Provider: 06/18/21 08:24 Source: patient Mode of arrival: Ambulatory Limitations: No Limitations - History of Present Illness Initial comments: Patient is a 30-year-old female that comes to the emergency room today complaining of left-sided facial pain and ear pain. She states that she knows she has a lot of dental decay but she has been unable to get a dentist with her current insurance. She states that she thinks this all started as a dental issue but now the pain is referring to her ear. She denies fever or chills. ABCs are intact and vital signs are stable. She is taking p.o. Controlling her secretions. With no abscess and no Ludewig's. No trismus. Patient is ambulatory, not ill-appearing and nontoxic on exam MD complaint: tooth pain, ear pain -: Gradual, days(s) Quality: aching Consistency: constant Improves with: none Worsens with: none Context- Dental: history of dental caries Associated Symptoms: toothache. denies: fever, cough, gum swelling, pain with swallowing, sore throat, tinnitus, hearing loss, discharge from ear, rhinorrhea - Related Data Home Medications Medication Instructions Recorded Confirmed Last Taken Flagyl TAB 1 tab PO BID 06/04/19 06/04/19 06/03/19 Vit-Fe Fumar-FA [ 1 tab DAILY 06/04/19 06/04/19 06/03/19 Vitamin] Previous Rx's Medication Instructions Recorded Last Taken Type HYDROcodone/APAP 5-325 [[place] 1 - 2 each PO Q4HR PRN #30 tablet 06/05/19 Unknown Rx 5/325] Docusate Sodium [Colace CAP] 100 mg PO BID #30 capsule 06/07/19 Unknown Rx Ferrous Sulfate [Feosol 325 MG tab] 325 mg PO TID #90 tablet 06/07/19 Unknown Rx Ibuprofen [Motrin 800 MG tab] 800 mg PO Q6H PRN #30 tablet 06/07/19 Unknown Rx Acetaminophen/Codeine [Tylenol 1 tab PO Q8H PRN #8 tab 10/19/20 Unknown Rx /Codeine # 3 tab] Ciprofloxacin HCl 500 mg PO BID 7 Days #14 tablet 10/19/20 Unknown Rx Magnesium Chloride 64 mg PO TID 5 Days #15 tablet. 10/19/20 Unknown Rx Potassium Chloride [K-Dur] 10 meq PO QDAY 5 Days #5 tablet 10/19/20 Unknown Rx Amoxicillin [Trimox CAP] 500 mg PO BID #20 capsule 06/18/21 Unknown Rx Ibuprofen [Motrin] 800 mg PO Q8HR PRN #30 tablet 06/18/21 Unknown Rx Allergies Allergy/AdvReac Type Severity Reaction Status Date / Time No Known Allergies Allergy Verified 06/18/21 06:40 ED Dental HPI - General Chief complaint: Pain General Stated complaint: EAR/THROAT/MOUTH/BACK PAIN Time Seen by Provider: 06/18/21 08:24 Source: patient Mode of arrival: Ambulatory Limitations: No Limitations - Related Data Home Medications Medication Instructions Recorded Confirmed Last Taken Flagyl TAB 1 tab PO BID 06/04/19 06/04/19 06/03/19 Vit-Fe Fumar-FA [ 1 tab DAILY 06/04/19 06/04/19 06/03/19 Vitamin] Previous Rx's Medication Instructions Recorded Last Taken Type HYDROcodone/APAP 5-325 [[place] 1 - 2 each PO Q4HR PRN #30 tablet 06/05/19 Unknown Rx 5/325] Docusate Sodium [Colace CAP] 100 mg PO BID #30 capsule 06/07/19 Unknown Rx Ferrous Sulfate [Feosol 325 MG tab] 325 mg PO TID #90 tablet 06/07/19 Unknown Rx Ibuprofen [Motrin 800 MG tab] 800 mg PO Q6H PRN #30 tablet 06/07/19 Unknown Rx Acetaminophen/Codeine [Tylenol 1 tab PO Q8H PRN #8 tab 10/19/20 Unknown Rx /Codeine # 3 tab] Ciprofloxacin HCl 500 mg PO BID 7 Days #14 tablet 10/19/20 Unknown Rx Magnesium Chloride 64 mg PO TID 5 Days #15 tablet. 10/19/20 Unknown Rx Potassium Chloride [K-Dur] 10 meq PO QDAY 5 Days #5 tablet 10/19/20 Unknown Rx Amoxicillin [Trimox CAP] 500 mg PO BID #20 capsule 06/18/21 Unknown Rx Ibuprofen [Motrin] 800 mg PO Q8HR PRN #30 tablet 06/18/21 Unknown Rx Allergies Allergy/AdvReac Type Severity Reaction Status Date / Time No Known Allergies Allergy Verified 06/18/21 06:40 ED Review of Systems ROS: Stated complaint: EAR/THROAT/MOUTH/BACK PAIN Other details as noted in HPI Comment: All other systems reviewed and negative ED Past Medical Hx - Past Medical History Previous Medical History?: Yes Hx Hypertension: No Hx Diabetes: No Hx Deep Vein Thrombosis: No Hx Renal Disease: No Hx Sickle Cell Disease: No Hx Seizures: No Hx Psychiatric Treatment: Yes (ANXIETY) Hx Asthma: Yes Hx HIV: No Additional medical history: scoleosis; chronic back pain - Surgical History Past Surgical History?: Yes Additional Surgical History: Pregancy termination 06/2013 - Family History Family history: no significant - Social History Smoking Status: Former Smoker Substance Use Type: Alcohol - Medications Home Medications: Home Medications Medication Instructions Recorded Confirmed Last Taken Type Flagyl TAB 1 tab PO BID 06/04/19 06/04/19 06/03/19 History Vit-Fe Fumar-FA [ 1 tab DAILY 06/04/19 06/04/19 06/03/19 History Vitamin] HYDROcodone/APAP 5-325 [[place] 1 - 2 each PO Q4HR PRN #30 tablet 06/05/19 Unknown Rx 5/325] Docusate Sodium [Colace CAP] 100 mg PO BID #30 capsule 06/07/19 Unknown Rx Ferrous Sulfate [Feosol 325 MG tab] 325 mg PO TID #90 tablet 06/07/19 Unknown Rx Ibuprofen [Motrin 800 MG tab] 800 mg PO Q6H PRN #30 tablet 06/07/19 Unknown Rx Acetaminophen/Codeine [Tylenol 1 tab PO Q8H PRN #8 tab 10/19/20 Unknown Rx /Codeine # 3 tab] Ciprofloxacin HCl 500 mg PO BID 7 Days #14 tablet 10/19/20 Unknown Rx Magnesium Chloride 64 mg PO TID 5 Days #15 tablet. 10/19/20 Unknown Rx Potassium Chloride [K-Dur] 10 meq PO QDAY 5 Days #5 tablet 10/19/20 Unknown Rx Amoxicillin [Trimox CAP] 500 mg PO BID #20 capsule 06/18/21 Unknown Rx Ibuprofen [Motrin] 800 mg PO Q8HR PRN #30 tablet 06/18/21 Unknown Rx ED Physical Exam - General Limitations: No Limitations General appearance: alert, in no apparent distress - Head Head exam: Present: atraumatic, normocephalic - Eye Eye exam: Present: normal appearance, PERRL, EOMI - ENT ENT exam: Present: mucous membranes moist - Expanded ENT Exam Expanded TM/Canal exam: Erythema: Left TM, Bulging: Left TM, Loss of Landmarks: Left TM Mouth exam: Absent: trismus, tongue elevation Teeth exam: Present: dental caries, other (diffuse) 1 - Other (decay) Throat exam: Positive: tonsillar erythema - Neck Neck exam: Present: normal inspection - Respiratory Respiratory exam: Present: normal lung sounds bilaterally. Absent: respiratory distress - Cardiovascular Cardiovascular Exam: Present: regular rate, normal rhythm. Absent: systolic murmur, diastolic murmur, rubs, gallop - GI/Abdominal GI/Abdominal exam: Present: soft, normal bowel sounds - Extremities Exam Extremities exam: Present: normal inspection - Back Exam Back exam: Present: normal inspection - Neurological Exam Neurological exam: Present: alert, oriented X3 - Psychiatric Psychiatric exam: Present: normal affect, normal mood - Skin Skin exam: Present: warm, dry, intact, normal color. Absent: rash ED Course Vital Signs 06/18/21 06/18/21 06:42 09:45 Temperature 98.6 F 97.9 F Pulse Rate 85 77 Respiratory 18 16 Rate Blood Pressure 119/58 Blood Pressure 118/84 [Right] O2 Sat by Pulse 99 99 Oximetry ED Medical Decision Making - Medical Decision Making Vital Signs (72 hours) 06/18/21 06:42 Temperature 98.6 F Pulse Rate 85 Respiratory 18 Rate Blood Pressure 119/58 O2 Sat by Pulse 99 Oximetry On exam patient's left ear TM is red and bulging. There is no drainage or scaliness in the canal. Patient has diffuse dental decay and fractured teeth. She understands that she needs to see a dentist she just cannot find one that would take her insurance. There is no abscess, Ludewig's or trismus on exam. She is taking p.o. She is afebrile. Patient medicated for pain in the ER. Patient being discharged home with discharge plan of care including diet, act ivity, medications and follow-up with dentist. She verbalizes understanding - Differential Diagnosis URI/OM/dental caries/trigeminal neuralgia Critical care attestation.: If time is entered above; I have spent that time in minutes in the direct care of this critically ill patient, excluding procedure time. ED Disposition Clinical Impression: Pain, dental Otitis media Qualifiers: Otitis media type: unspecified Chronicity: acute Qualified Code(s): H66.90 - Otitis media, unspecified, unspecified ear Disposition: 01 HOME / SELF CARE / HOMELESS Is pt being admited?: No Does the pt Need Aspirin: No Condition: Stable Instructions: Otitis Media, Adult Additional Instructions: Medications as ordered today. Be sure and take your antibiotic until its gone. Follow-up with your primary care doctor. Have also given you referral below. Follow-up with the dentist. [facility] has a dental program sometimes they are easiest to get in with. I have also given you referrals below. What we have done today with regard to your dental pain is only temporary. Once the antibiotics wear off the pain will recur. [id number] Motrin and Tylenol for pain Stay well-hydrated with water Prescriptions: Ibuprofen [Motrin] 800 mg PO Q8HR PRN #30 tablet PRN Reason: Pain, Moderate (4-6) Amoxicillin [Trimox CAP] 500 mg PO BID #20 capsule Referrals: LALO WOODWARD MD [Primary Care Provider] - 3-5 Days VENUS PEÑA MD [Staff Physician] - 3-5 Days [facility] [Outside] - 3-5 Days [facility] [Outside] - 3-5 Days Forms: Work/School Release Form(ED) Time of Disposition: 09:22
[2021-06-18 09:46] VITALS: BP 118/84
== END 2021-06-18 09:46 | disposition home or self-care (01) ==
LOC: ED 06:17
DX: H66.92 Otitis media, unspecified, left ear (principal); K08.89 Other specified disorders of teeth and supporting structures; Z79.899 Other long term (current) drug therapy
CPT/HCPCS: 99282; J1885